=== PATIENT | female | born 1960 | race Caucasian/White ===

== ENCOUNTER → 2017-03-11 | Outpatient (CLI) | payer MEDICARE, MEDICAID ==
[~2017-03-11] MED LIST: /AUGM25TA; ACET65TA OR; AMLO10TA; CATA0.2D; CATA0.3D; CLON0.1D3; COLA100C2 OR; FERR325T OR; FLAG500T; LOPR50TA; LOPR50TA OR; METO10TA2; METO25TA2; MINOXIDIL; MINOXIDIL PO; MULTIVIT PO; PERC5TAB8; PERC5TAB8 OR; PERC7.5T8 OR; SODIUM BICARB PO
== END ==
LOC: M LAB 08:14
PROVIDERS: ATTEND Internal Medicine Nephrology
DX: Z94.0 Kidney transplant status (principal)

== ENCOUNTER → 2017-03-18 | Outpatient (CLI) | payer MEDICARE, MEDICAID | LOC: M LAB 08:37 | PROVIDERS: ATTEND Internal Medicine Nephrology | DX: Z94.0 Kidney transplant status (principal) ==

== ENCOUNTER → 2017-03-22 | Outpatient (CLI) | payer MEDICARE, MEDICAID | LOC: M LAB 08:46 | PROVIDERS: ATTEND Internal Medicine Nephrology | DX: Z94.0 Kidney transplant status (principal) ==

== ENCOUNTER → 2017-04-05 | Outpatient (CLI) | payer MEDICARE, MEDICAID | LOC: M LAB 08:18 | PROVIDERS: ATTEND Internal Medicine Nephrology | DX: D84.9 Immunodeficiency, unspecified (principal); N18.5 Chronic kidney disease, stage 5; Z94.0 Kidney transplant status; Z79.899 Other long term (current) drug therapy ==

== ENCOUNTER → 2017-04-16 | Outpatient (CLI) | payer MEDICARE, MEDICAID | LOC: M LAB 08:31 | PROVIDERS: ATTEND Internal Medicine Nephrology | DX: Z94.0 Kidney transplant status (principal); N18.5 Chronic kidney disease, stage 5; D84.9 Immunodeficiency, unspecified; Z79.899 Other long term (current) drug therapy ==

== ENCOUNTER → 2017-04-22 | Outpatient (CLI) | payer MEDICARE, MEDICAID | LOC: M LAB 08:44 | PROVIDERS: ATTEND Internal Medicine Nephrology | DX: Z51.81 Encounter for therapeutic drug level monitoring (principal); Z79.899 Other long term (current) drug therapy ==

== ENCOUNTER → 2017-04-29 | Outpatient (CLI) | payer MEDICARE, MEDICAID | LOC: M LAB 08:39 | DX: D84.9 Immunodeficiency, unspecified (principal); N18.5 Chronic kidney disease, stage 5; Z94.0 Kidney transplant status; Z79.899 Other long term (current) drug therapy | CPT/HCPCS: 36415 ==

== ENCOUNTER → 2017-05-20 | Outpatient (CLI) | payer MEDICARE, MEDICAID | LOC: M LAB 08:38 | DX: N18.5 Chronic kidney disease, stage 5 (principal); Z94.0 Kidney transplant status; D84.9 Immunodeficiency, unspecified; Z79.899 Other long term (current) drug therapy | CPT/HCPCS: 36415 ==

== ENCOUNTER → 2017-06-10 | Outpatient (CLI) | payer MEDICARE, MEDICAID | LOC: M LAB 09:05 | DX: N18.5 Chronic kidney disease, stage 5 (principal); Z94.0 Kidney transplant status; D84.9 Immunodeficiency, unspecified; Z79.899 Other long term (current) drug therapy | CPT/HCPCS: 36415 ==

== ENCOUNTER → 2017-06-24 | Outpatient (CLI) | payer MEDICARE, MEDICAID | LOC: M LAB 08:46 | DX: Z94.0 Kidney transplant status (principal); D84.9 Immunodeficiency, unspecified; N18.5 Chronic kidney disease, stage 5; Z79.899 Other long term (current) drug therapy | CPT/HCPCS: 36415 ==

== ENCOUNTER → 2017-09-03 | Outpatient (CLI) | payer MEDICARE, MEDICAID | LOC: M LAB 08:39 | DX: Z94.0 Kidney transplant status (principal); N18.5 Chronic kidney disease, stage 5; D84.9 Immunodeficiency, unspecified | CPT/HCPCS: 36415 ==

== ENCOUNTER → 2017-10-21 | Outpatient (CLI) | payer MEDICARE, MEDICAID ==
[2017-10-21 09:03] LABS: ALBUMIN 3.7 GM/DL (3.2-5.2); ANION GAP 5 MEQ/L (8-16); BLOOD UREA NITROGEN 14 MG/DL (7-18); CALCIUM LEVEL 9.7 MG/DL (8.5-10.1); CARBON DIOXIDE LEVEL 31 MEQ/L (21-32); CHLORIDE LEVEL 106 MEQ/L (98-107); CREATININE FOR GFR 0.75 MG/DL (0.55-1.30); GLOMERULAR FILTRATION RATE > 60.0 (>51); GLUCOSE, FASTING 102 MG/DL (70-100); PHOSPHORUS LEVEL 3.1 MG/DL (2.5-4.9); SODIUM LEVEL 142 MEQ/L (136-145)
[2017-10-21 09:08] LABS: POTASSIUM SERUM 5.6 MEQ/L (3.5-5.1)
== END ==
LOC: M LAB 08:16
DX: Z94.0 Kidney transplant status (principal)
CPT/HCPCS: 80069

== ENCOUNTER → 2017-11-18 | Outpatient (CLI) | payer MEDICARE, MEDICAID ==
[2017-11-18 09:58] LABS: BASO % 0.4 % (0.0-1.0); EOS # 0.1 10^3/uL (0.0-0.50); EOS % 1.5 % (0.0-3.0); HEMATOCRIT 43.7 % (36.0-47.0); HEMOGLOBIN 13.5 g/dl (12.0-15.5); IMMATURE GRANULOCYTE % 0.9 % (0-3.0); LYMPH % 14.2 % (24.0-44.0); MEAN CORPUSCULAR HEMOGLOBIN 28.8 pg (27.0-33.0); MEAN CORPUSCULAR HGB CONC 30.9 g/dl (32.0-36.5); MEAN CORPUSCULAR VOLUME 93.2 fl (80.0-96.0); MONO # 0.7 10^3/uL (0.0-0.8); MONO % 9.8 % (0.0-5.0); NEUTROPHILS % 73.2 % (36.0-66.0); PLATELET COUNT, AUTOMATED 242 10^3/uL (150-450); RED BLOOD COUNT 4.69 10^6/uL (4.00-5.40); RED CELL DISTRIBUTION WIDTH 14.2 % (11.5-14.5); WHITE BLOOD COUNT 6.8 10^3/uL (4.0-10.0)
[2017-11-18 10:03] LABS: APPEARANCE, URINE CLEAR (CLEAR); BACTERIA, URINE AUTO 1+ (NEGATIVE); BILIRUBIN, URINE AUTO NEGATIVE (NEGATIVE); BLOOD, URINE BLOOD NEGATIVE (NEGATIVE); COLOR, URINE STRAW (YELLOW); GLUCOSE, URINE (UA) AUTO NEGATIVE (NEGATIVE); KETONE, URINE AUTO NEGATIVE (NEGATIVE); LEUKOCYTE ESTERASE, URINE AUTO NEGATIVE (NEGATIVE); NITRITE, URINE AUTO NEGATIVE (NEGATIVE); PROTEIN, URINE AUTO NEGATIVE (NEGATIVE); RBC, URINE AUTO 0 /HPF (0-3); SPECIFIC GRAVITY URINE AUTO 1.002 (1.002-1.035); SQUAMOUS EPITHELIAL CELL UR AU 0 /HPF (0-6); UROBILINOGEN, URINE AUTO 0.2 mg/dL (0.0-2.0); WBC, URINE AUTO 2 /HPF (0-3)
[2017-11-18 10:15] LABS: ALBUMIN 3.9 GM/DL (3.2-5.2); ANION GAP 7 MEQ/L (8-16); BLOOD UREA NITROGEN 9 MG/DL (7-18); CARBON DIOXIDE LEVEL 30 MEQ/L (21-32); CHLORIDE LEVEL 106 MEQ/L (98-107); CREATININE FOR GFR 0.63 MG/DL (0.55-1.30); GLOMERULAR FILTRATION RATE > 60.0 (>51); GLUCOSE, FASTING 97 MG/DL (70-100); MAGNESIUM LEVEL 1.5 MG/DL (1.8-2.4); POTASSIUM SERUM 4.6 MEQ/L (3.5-5.1); SODIUM LEVEL 143 MEQ/L (136-145)
== END ==
LOC: M LAB 09:07
DX: Z94.0 Kidney transplant status (principal); N18.5 Chronic kidney disease, stage 5; D84.9 Immunodeficiency, unspecified; Z79.899 Other long term (current) drug therapy
CPT/HCPCS: 83735

== ENCOUNTER → 2017-12-17 | Outpatient (CLI) | payer MEDICARE, MEDICAID ==
[2017-12-17 09:31] LABS: BASO % 0.7 % (0.0-1.0); EOS # 0.1 10^3/uL (0.0-0.50); EOS % 1.8 % (0.0-3.0); HEMATOCRIT 43.4 % (36.0-47.0); HEMOGLOBIN 13.6 g/dl (12.0-15.5); IMMATURE GRANULOCYTE % 0.5 % (0-3.0); LYMPH # 1.2 10^3/uL (1.5-4.5); LYMPH % 19.2 % (24.0-44.0); MEAN CORPUSCULAR HEMOGLOBIN 29.4 pg (27.0-33.0); MEAN CORPUSCULAR HGB CONC 31.3 g/dl (32.0-36.5); MEAN CORPUSCULAR VOLUME 93.9 fl (80.0-96.0); MONO # 0.6 10^3/uL (0.0-0.8); MONO % 10.5 % (0.0-5.0); NEUTROPHILS % 67.3 % (36.0-66.0); PLATELET COUNT, AUTOMATED 244 10^3/uL (150-450); RED BLOOD COUNT 4.62 10^6/uL (4.00-5.40); RED CELL DISTRIBUTION WIDTH 13.1 % (11.5-14.5)
[2017-12-17 09:34] LABS: APPEARANCE, URINE CLEAR (CLEAR); BACTERIA, URINE AUTO NEGATIVE (NEGATIVE); BILIRUBIN, URINE AUTO NEGATIVE (NEGATIVE); BLOOD, URINE BLOOD NEGATIVE (NEGATIVE); COLOR, URINE YELLOW (YELLOW); GLUCOSE, URINE (UA) AUTO NEGATIVE (NEGATIVE); KETONE, URINE AUTO NEGATIVE (NEGATIVE); LEUKOCYTE ESTERASE, URINE AUTO NEGATIVE (NEGATIVE); NITRITE, URINE AUTO NEGATIVE (NEGATIVE); PROTEIN, URINE AUTO NEGATIVE (NEGATIVE); RBC, URINE AUTO 1 /HPF (0-3); SPECIFIC GRAVITY URINE AUTO 1.014 (1.002-1.035); SQUAMOUS EPITHELIAL CELL UR AU 1 /HPF (0-6); UROBILINOGEN, URINE AUTO 0.2 mg/dL (0.0-2.0); WBC, URINE AUTO 0 /HPF (0-3)
[2017-12-17 10:11] LABS: ALBUMIN 3.6 GM/DL (3.2-5.2); ANION GAP 6 MEQ/L (8-16); BLOOD UREA NITROGEN 13 MG/DL (7-18); CARBON DIOXIDE LEVEL 31 MEQ/L (21-32); CHLORIDE LEVEL 106 MEQ/L (98-107); CREATININE FOR GFR 0.68 MG/DL (0.55-1.30); GLOMERULAR FILTRATION RATE > 60.0 (>51); GLUCOSE, FASTING 88 MG/DL (70-100); MAGNESIUM LEVEL 1.5 MG/DL (1.8-2.4); POTASSIUM SERUM 4.4 MEQ/L (3.5-5.1); SODIUM LEVEL 143 MEQ/L (136-145)
== END ==
LOC: M LAB 08:13
DX: Z94.0 Kidney transplant status (principal); N18.5 Chronic kidney disease, stage 5; D84.9 Immunodeficiency, unspecified; Z79.899 Other long term (current) drug therapy
CPT/HCPCS: 83735

== ENCOUNTER → 2018-06-13 | Outpatient (CLI) | payer MEDICARE, MEDICAID ==
--- NOTE | 2018-06-13 17:08 | REP ---
NUCLEAR PARATHYROID SESTAMIBI SCAN WITH SPECT IMAGING: Following the intravenous administration of 27.5 millicuries of Technetium 99M Sestamibi, multiple images of the neck are performed at 15 minutes and 3.25 hours after injection. SPECT imaging is also performed in the delayed phase in the axial, sagittal and coronal planes. Initial images show symmetric uptake in the salivary glands and thyroid. On the more delayed images there is persistent activity in the salivary glands, symmetrically there is bilateral washout from the thyroid bed. There is no persistent focus of increased uptake in this region. IMPRESSION :No compelling scintigraphic evidence of parathyroid adenoma. Electronically Signed by Jordan Morse MD 06/13/2018 11:56 P
== END ==
LOC: M RAD 09:27
PROVIDERS: ATTEND Internal Medicine Nephrology
DX: E21.0 Primary hyperparathyroidism (principal)
CPT/HCPCS: 78070; 78803; A9500

== ENCOUNTER → 2018-08-11 | Outpatient (REF) | payer MEDICARE, MEDICAID | LOC: M LAB REF 13:07 | PROVIDERS: ATTEND Internal Medicine Nephrology | DX: Z94.0 Kidney transplant status (principal) ==

== ENCOUNTER → 2018-09-23 | Outpatient (CLI) | payer MEDICARE, MEDICAID ==
[2018-09-23 09:05] LABS: APPEARANCE, URINE HAZY (CLEAR); BACTERIA, URINE AUTO NEGATIVE (NEGATIVE); BILIRUBIN, URINE AUTO NEGATIVE (NEGATIVE); BLOOD, URINE BLOOD NEGATIVE (NEGATIVE); COLOR, URINE YELLOW (YELLOW); GLUCOSE, URINE (UA) AUTO NEGATIVE (NEGATIVE); KETONE, URINE AUTO NEGATIVE (NEGATIVE); LEUKOCYTE ESTERASE, URINE AUTO NEGATIVE (NEGATIVE); NITRITE, URINE AUTO NEGATIVE (NEGATIVE); PROTEIN, URINE AUTO NEGATIVE (NEGATIVE); RBC, URINE AUTO 0 /HPF (0-3); SPECIFIC GRAVITY URINE AUTO 1.013 (1.002-1.035); SQUAMOUS EPITHELIAL CELL UR AU 1 /HPF (0-6); UROBILINOGEN, URINE AUTO 0.2 mg/dL (0.0-2.0); WBC, URINE AUTO 2 /HPF (0-3)
[2018-09-23 09:07] LABS: BASO % 0.3 % (0.0-1.0); EOS % 0.7 % (0.0-3.0); HEMATOCRIT 46.2 % (36.0-47.0); HEMOGLOBIN 14.6 g/dl (12.0-15.5); LYMPH # 1.1 10^3/uL (1.5-4.5); LYMPH % 17.5 % (24.0-44.0); MEAN CORPUSCULAR HEMOGLOBIN 29.1 pg (27.0-33.0); MEAN CORPUSCULAR HGB CONC 31.6 g/dl (32.0-36.5); MONO # 0.7 10^3/uL (0.0-0.8); MONO % 11.1 % (0.0-5.0); NEUTROPHILS # 4.3 10^3/uL (1.8-7.7); NEUTROPHILS % 69.9 % (36.0-66.0); PLATELET COUNT, AUTOMATED 215 10^3/uL (150-450); RED BLOOD COUNT 5.02 10^6/uL (4.00-5.40); WHITE BLOOD COUNT 6.1 10^3/uL (4.0-10.0)
[2018-09-23 09:20] LABS: BLOOD UREA NITROGEN 9 MG/DL (7-18); CARBON DIOXIDE LEVEL 27 MEQ/L (21-32); CHLORIDE LEVEL 104 MEQ/L (98-107); CREATININE FOR GFR 0.76 MG/DL (0.55-1.30); GLOMERULAR FILTRATION RATE > 60.0 (>45); GLUCOSE, FASTING 120 MG/DL (70-100); MAGNESIUM LEVEL 1.3 MG/DL (1.8-2.4); PHOSPHORUS LEVEL 3.2 MG/DL (2.5-4.9); POTASSIUM SERUM 4.4 MEQ/L (3.5-5.1); SODIUM LEVEL 138 MEQ/L (136-145)
[2018-09-23 09:21] LABS: TOTAL PROTEIN,RANDOM URINE 17.1 MG/DL (0.0-12.0)
== END ==
LOC: M LAB 08:14
PROVIDERS: ATTEND Nurse Practitioner Family
DX: Z51.81 Encounter for therapeutic drug level monitoring (principal); Z79.899 Other long term (current) drug therapy; N18.5 Chronic kidney disease, stage 5; Z94.0 Kidney transplant status; D84.9 Immunodeficiency, unspecified

== ENCOUNTER → 2018-11-15 | Outpatient (REF) | payer MEDICARE, MEDICAID | LOC: M LAB REF 12:47 | PROVIDERS: ATTEND Internal Medicine Nephrology | DX: Z94.0 Kidney transplant status (principal) ==

== ENCOUNTER → 2019-03-01 | Outpatient (REF) | payer MEDICARE, MEDICAID | LOC: M LAB REF 13:08 | PROVIDERS: ATTEND Internal Medicine Nephrology | DX: Z94.0 Kidney transplant status (principal) ==

== ENCOUNTER → 2019-09-06 | Outpatient (REF) | payer MEDICARE, MEDICAID | LOC: M LAB REF 16:37 | PROVIDERS: ATTEND Nurse Practitioner Family | DX: Z94.0 Kidney transplant status (principal) ==

== ENCOUNTER → 2019-12-20 | Outpatient (REF) | payer MEDICARE, MEDICAID ==
[2019-12-20 19:21] LABS: ALT/SGPT 14 U/L (12-78); BILIRUBIN,DIRECT < 0.1 MG/DL (0.0-0.2); BILIRUBIN,TOTAL 0.3 MG/DL (0.2-1.0); CHOLESTEROL LEVEL 229 MG/DL (<200); HDL CHOLESTEROL 51 MG/DL (>40); LDL CHOLESTEROL 133 MG/DL (<100); NON-HDL-C 178 MG/DL; TOTAL PROTEIN 7.1 GM/DL (6.4-8.2); TRIGLYCERIDES LEVEL 227 MG/DL (<150)
[2019-12-20 19:56] LABS: TOTAL T3 98.1 NG/DL (60.0-181.0)
== END ==
LOC: M LAB REF 16:44
PROVIDERS: ATTEND Nurse Practitioner Family
DX: N18.2 Chronic kidney disease, stage 2 (mild) (principal); E78.49 Other hyperlipidemia; R53.83 Other fatigue; Z94.0 Kidney transplant status

== ENCOUNTER → 2020-01-16 | Outpatient (CLI) | payer MEDICARE, MEDICAID ==
--- NOTE | 2020-01-16 17:15 | REPMRS ---
Patient History The patient states she has not had a clinical breast exam in over a year. No known family history of cancer. Digital Woman Screen Mammo: January 16, 2020 - Exam #: [id number] Bilateral CC and MLO view(s) were taken. Technologist: Rafaela Valderrama, Technologist Prior study comparison: March 02, 2016, digital woman screen mammo performed at [facility]. February 08, 2014, digital woman screen mammo performed at [facility]. February 08, 2012, digital woman screen mammo performed at [facility]. FINDINGS: There are scattered fibroglandular densities. The Volpara volumetric breast density category is:B. There has been no change in the appearance of the mammogram from the prior studies. There is a mild amount of scattered fibroglandular density which is fairly symmetric. There is no interval development of dominant mass, architectural distortion, or grouped microcalcification suggestive of malignancy. 3-D tomosynthesis shows no additional findings. Assessment: BI-RADS/ACR category 1 mammogram. Negative Mammogram. Recommendation Routine screening mammogram of both breasts in 1 year (for women over age 40). This patient's Lifetime Breast Cancer Risk is estimated at 5.5 %. This mammogram was interpreted with the aid of an FDA-approved computer-aided dectection system. Electronically Signed By: Flaco Sandoval MD 01/16/20 [id number]
--- NOTE | 2020-01-26 15:15 | DEXA ---
AP SPINE L1 - L4 0.974 -1.8 -0.5 LT FEMUR TOTAL 0.780 -1.8 -0.8 LT NECK 0.712 -2.3 -1.0 RT FEMUR TOTAL 0.788 -1.7 -0.8 RT NECK 0.719 -2.3 -1.0 TOTAL BODY TOTAL OTHER COMMENTS: Normal bone densitometry of the spine. There is open density of the hips. FOLLOW-UP: Recommendation for the next bone density exam: 2 years. KULWINDER
== END ==
LOC: M WHC 12:46
PROVIDERS: ATTEND Nurse Practitioner Family
DX: Z12.31 Encounter for screening mammogram for malignant neoplasm of breast (principal); Z13.820 Encounter for screening for osteoporosis; Z79.52 Long term (current) use of systemic steroids

== ENCOUNTER → 2020-05-08 | Outpatient (REF) | payer MEDICAID | LOC: M LAB REF 17:12 | PROVIDERS: ATTEND Nurse Practitioner Family | DX: N18.2 Chronic kidney disease, stage 2 (mild) (principal) ==

== ENCOUNTER → 2020-06-10 | Outpatient (REF) | payer OTHER, MEDICAID | LOC: M LAB REF 16:56 | PROVIDERS: ATTEND Nurse Practitioner Family | DX: Z94.0 Kidney transplant status (principal) ==

== ENCOUNTER 2020-07-09 10:05 | Inpatient (IN) | payer MEDICAID, OTHER ==
[~2020-07-09] VITALS: Ht 162.6 cm; Wt 56.7 kg
[2020-07-09] VITALS (8 sets, daily range): BP systolic 96–145; BP diastolic 49–75
[~2020-07-09 10:05] MED LIST changes: -ACET-840 PO; -CALC-356 PO; -CALC1CAP31 PO; -HYDR10TAB PO; -METO1TAB33 PO; -MYCO1TAB PO; -PRED5TA PO; -TACR1CAP3 PO
[2020-07-09] MEDS ORDERED: dexameTHASONE 20MG/5ML VIAL (J1100 PER 1MG) IV ONE (10:15)
[2020-07-09] MEDS ORDERED: NS 500 ML IV ONE (10:20)
[2020-07-09] MEDS: COMBIVENT RESPIMAT 100-20MCG INHALER 4GM INH SCH ×3 (10:25→11:59)
--- NOTE | 2020-07-09 10:53 | REP ---
INDICATION: DYSPNEA/COUGH COMPARISON: 12/11/2008 TECHNIQUE: Portable AP view of the chest FINDINGS: Diffuse vague increased interstitial markings suggest underlying viral pneumonia/pneumonitis. No discrete focal consolidation. No effusion. No pneumothorax. Cardiac silhouette is upper limits of normal. Skeletal structures intact. IMPRESSION: Findings raise the possibility of diffuse viral pneumonia/pneumonitis. Less likely differential diagnosis includes early interstitial edema. <Electronically signed by Ke Castro > 07/09/20 [id number]
[2020-07-09 11:11] LABS: BASO % 0.4 % (0.0-1.0); EOS % 0.1 % (0.0-3.0); HEMATOCRIT 50.8 % (36.0-47.0); HEMOGLOBIN 13.9 g/dl (12.0-15.5); LYMPH # 0.6 10^3/uL (1.5-5.0); LYMPH % 8.2 % (24.0-44.0); MEAN CORPUSCULAR HEMOGLOBIN 27.9 pg (27.0-33.0); MEAN CORPUSCULAR HGB CONC 27.4 g/dl (32.0-36.5); MONO # 0.8 10^3/uL (0.0-0.8); MONO % 11.2 % (2.0-8.0); NEUTROPHILS # 5.5 10^3/uL (1.5-8.5); NEUTROPHILS % 79.5 % (36.0-66.0); PLATELET COUNT, AUTOMATED 211 10^3/uL (150-450); RED BLOOD COUNT 4.98 10^6/uL (4.00-5.40)
[2020-07-09 11:21] LABS: INR 0.94; PROTHROMBIN TIME 12.8 SECONDS (12.5-14.3)
[2020-07-09 11:23] LABS: D-DIMER QUANT 1155.33 ng/ml (<500)
[2020-07-09 11:35] LABS: ALBUMIN 3.6 GM/DL (3.2-5.2); ALT/SGPT 15 U/L (12-78); BILIRUBIN,DIRECT 0.2 MG/DL (0.0-0.2); BILIRUBIN,TOTAL 0.5 MG/DL (0.2-1.0); BLOOD UREA NITROGEN 12 MG/DL (7-18); C REACTIVE PROTEIN QUANTITATIV 1.87 MG/DL (0.00-0.30); CALCIUM LEVEL 9.9 MG/DL (8.8-10.2); CARBON DIOXIDE LEVEL 41 MEQ/L (21-32); CHLORIDE LEVEL 99 MEQ/L (98-107); CK-MB VALUE MASS 1.6 NG/ML (<3.6); CPK CREATINE PHOSPHOKINASE 38 U/L (26-192); CREATININE FOR GFR 0.66 MG/DL (0.55-1.30); FERRITIN 71 NG/ML (8-252); GLOMERULAR FILTRATION RATE > 60.0 (>45); GLUCOSE, FASTING 107 MG/DL (70-100); LDH LACTATE DEHYDROGENASE 176 U/L (84-246); MB/CK RELATIVE INDEX 4.21 (< OR =4); NT-PRO BNP 2625 PG/ML (<125); POTASSIUM SERUM 4.5 MEQ/L (3.5-5.1); SODIUM LEVEL 140 MEQ/L (136-145); THYROXINE (T4) 10.6 UG/DL (4.5-12.0); TOTAL PROTEIN 6.8 GM/DL (6.4-8.2); TROPONIN I 0.03 NG/ML (< 0.10)
[2020-07-09 11:49] LABS: ERYTHROCYTE SEDIMENTATION RATE 2 mm/hr (0-30)
[2020-07-09] MEDS ORDERED: ISOVUE-370 76% 100ML VIAL As Ordered ONE (11:53)
--- NOTE | 2020-07-09 12:07 | ECGEPIP ---
[facility] - ED Test Date: 2020-07-09 Pat Name: TIERA NAVARRO Department: Room: - Gender: Female Food Counter Attendant: ALEXSANDRA : 1960 Requested By: ROSE Ogden Order Number: [id number] Reading MD: Lars Muir Measurements Intervals [place] Rate: 88 P: 65 NC: 134 QRS: 44 QRSD: 80 T: 70 QT: 340 QTc: 411 Interpretive Statements Sinus rhythm with occasional premature ventricular complexes POOR R WAVE PROGRESSION Minimal voltage criteria for LVH, may be normal variant Nonspecific ST abnormality NO PRIORS FOR COMPARISON Electronically Signed on 07-09-2020 12:06:57 EST by Lars Muir
--- NOTE | 2020-07-09 12:24 | REP ---
INDICATION: hypoxia/shortness of breath COMPARISON: None. TECHNIQUE: Axial contrast enhanced images from the thoracic inlet to the upper abdomen using pulmonary embolus technique with multiplanar re-formations. 75 ml Isovue 370 intravenous contrast material administered without complication. This CT examination was performed using the following dose reduction techniques: Automated exposure control, adjustment of mA and/or kv according to the patient's size, and use of iterative reconstruction technique. FINDINGS: Satisfactory enhancement of the pulmonary vasculature is achieved and no filling defects are identified to suggest pulmonary embolus. Thoracic aorta demonstrates atherosclerotic changes without aneurysm or dissection. The heart is upper limits of normal in size with small amount of pericardial fluid as a nonspecific finding. The lung cuello demonstrate mild reticulonodular prominence which may reflect a mild viral pneumonia with associated minimal bibasilar atelectasis and small pleural effusions. No significant adenopathy. No pneumothorax. Limited upper abdomen demonstrates normal bilateral adrenal glands and atrophic appearance to the bilateral kidneys. Surrounding musculoskeletal structures are intact. IMPRESSION: No evidence for pulmonary embolus. Mild bibasilar atelectasis and small pleural effusions are otherwise nonspecific. <Electronically signed by Ke Castro > 07/09/20 [id number]
[2020-07-09] MEDS ORDERED: HYDR10TAB PO (14:17)
[2020-07-09] MEDS ORDERED: CALC-356 PO (14:17)
[2020-07-09] MEDS ORDERED: MYCO1TAB PO (14:17)
[2020-07-09] MEDS ORDERED: PRED5TA PO (14:17)
[2020-07-09] MEDS ORDERED: ACET-840 PO (14:17)
[2020-07-09] MEDS ORDERED: METO1TAB33 PO (14:17)
[2020-07-09] MEDS ORDERED: TACR1CAP3 PO (14:17)
[2020-07-09] MEDS ORDERED: CALC1CAP31 PO (14:17)
[2020-07-09] MEDS ORDERED: ALBUTEROL SULFATE 2.5 MG/0.5 ML INH NEB SOLN NEB PRN (14:40)
--- NOTE | 2020-07-09 16:25 | HPEPDOC ---
[facility] Medical History & Physical Date of Admission Jul 09, 2020 Date of Service: Jul 09, 2020 Attending Physician: Altagracia Rice MD History and Physical CHIEF COMPLAINT: Increased SOB, altered mental status HISTORY OF PRESENT ILLNESS: Patient is a 59 y/o F with PMH of CKD s/p renal transplant, HTN, tobacco use, HTN, ? COPD, hyperparathyroidism who presented to [facility] with increased SOB. Patient was a poor historian due to forgetfulness so her daughter and HCP Devorah gave us more information about history. Per her daughter, she has been having increased SOB over the past several weeks. Other associated symptoms include dizziness, falls at home, lightheadedness, increased SOB, increased lethargy, poor sleep, unsteadiness. Today when the patient's daughter came to take her to her nephrology appointment, she was very forgetful, unsteady on her feet, confused and disoriented. They then proceeded to go to the nephrology office. Once they were there, they were sent to the ER via ambulance by the provider who had seen her. In the ER, RR 32-40, O2 sat 100% on 4 L NC. ABG showed pH 7.3 / pCO2 88 / pHCO3 43.5. She had decreased breath sounds bilaterally, was in respiratory distress and confused. Her repeat ABG showed to be worse with pH 7.23 / pCO2 97 / pHCO3 41. ER was advised to use bipap, steroids, nebulizers which helped immensely. D dimer was elevated, CTA chest showed small bilateral pleural effusions but no s/s of PNA, COVID and resp panel neg. BNP elevated at 2625, no hx of CHF, no prior echo on file. No s/s of fluid overload on exam. Patient was confused on exam but had much improved according to staff from when she first presented to the hospital. She denied chest pain, coughing, fevers, chills, n/v/d. Her daughter was contacted by myself to get additional information. She was later admitted to the ICU on bipap for acute hypercapnic respiratory failure 2/ to possible COPD exacerbation. REVIEW OF SYSTEMS: Neg except mentioned above PAST MEDICAL HISTORY: Tobacco use ? COPD CKD s/p renal transplant Hyperparathyroidism PAST SURGICAL HISTORY: Renal transplant 01/2017 Exploratory laparotomy 06/04 to bowel perforation from diverticulitis S/p sigmoid colectomy with colostomy with reversal colostomy Diverting colostomy placed and later reversed 01/11/2009 FAMILY HISTORY: Father: CKD. early 30's. Mother: lung cancer. at 76 y/o SOCIAL HISTORY: Smoker 3 cigarettes per day, used to smoke up to 1 PPD, smoking 48 years. Social alcohol use, denies illicit drug use. Specialists she follows with include: Dr. Alatorre (transplant team in [facility] ), Nephrology Dr. Anders, Metrology Technician- [place]. No PCP. Full Code. HCP daughter Devorah. ALLERGIES: Please see below. HOME MEDICATIONS: Please see below. PHYSICAL EXAMINATION: VS: Please see CONSTITUTIONAL:sitting up in bed, mild respiratory distress, AAO x 3 EYES: PERRLA, EOM intact HENT, MOUTH: Normocephalic, atraumatic, moist mucous membranes NECK: SUPPLE, no JVD, no lymphadenopathy, no carotid bruit CV: Regular rate and rhythm, S1S2 normal, no murmurs/rubs/gallops RESPIRATORY: Decreased breath sounds bilaterally, no rales/rhonchi/wheezes GI: Multiple well-healed scars on abd, BS positive in 4 quadrants, soft, nontender, nondistended, no rebound or guarding, no organomegaly : Deferred MUSCULOSKELETAL: Normal ROM. No cyanosis, clubbing, swelling, joint deformity, extremity edema INTEGUMENTARY: Intact, no rashes, no lesions, no erythema NEUROLOGIC: Cranial Nerves II-XII are intact, no focal deficits PSYCHIATRIC: Slightly confused but cooperative LABORATORY DATA: Please see below IMAGING: CTA chest: No evidence for pulmonary embolus. Mild bibasilar atelectasis and small pleural effusions are otherwise nonspecific. ASSESSMENT: 59 y/o F with PMH of CKD s/p renal transplant, HTN, tobacco use, HTN, ? COPD, hyperparathyroidism admitted to the ICU on bipap for acute hypercapnic respiratory failure 2/2 to possible COPD exacerbation. PLAN: Acute hypercapnic respiratory failure 2/2 to possible COPD exacerbation -Long time smoker, no prior official diagnosis but was suspected according to daughter -Improving ABG's, currently on bipap: 04/07, FiO2 30%- improving -COVID neg, resp panel neg -C/w methylprenisolone IV Q8H, duoneb ATC, albuterol PRN -Bipap PRN -Dr. Anderson (pulmonary) consulted Elevated BNP, r/o CHF -No s/s of fluid overload on exam, small effusions on CT -No cardiac hx -BNP 2625 -Giving lasix 20 mg x 1 today, watch Cr was is renal transplant pt -C/w BB -F/u echocardiogram CKD Stage 4 s/p renal transplant -Cr 0.66 -C/w home medications, holding PO prednisone while on high methylprednisolone. f/u mycophenolate and tacrolimus levels -Dr. Anders valve setter locally Hyperparathyroidism -F/u PTH level -To f/u as o/p with specialist to have parathyroid removed HTN -Stable -C/w home medications DVT px -Heparin SC DISPOSITION: Updated DELGADO Fairchild and daughter [phone]. Admitted to ICU for further care. ICU TIME SPENT CARING FOR PATIENT (nonprocedural): 50 MINS Vital Signs Vital Signs Date Time Temp Pulse Resp B/P (MAP) Pulse Ox O2 Delivery O2 Flow Rate FiO2 07/09/20 13:43 80 32 93 07/09/20 13:30 115/73 (87) 07/09/20 12:30 35 07/09/20 10:39 99.1 Nasal Cannula 4.0 Laboratory Data Labs 24H Laboratory Tests 2 07/09/20 10:38: Immature Granulocyte % (Auto) 0.6, Neutrophils (%) (Auto) 79.5H, Lymphocytes (%) (Auto) 8.2L, Monocytes (%) (Auto) 11.2H, Eosinophils (%) (Auto) 0.1, Basophils (%) (Auto) 0.4, Neutrophils # (Auto) 5.5, Lymphocytes # (Auto) 0.6L, Monocytes # (Auto) 0.8, Eosinophils # (Auto) 0.0, Basophils # (Auto) 0.0, Nucleated Red Blood Cells % (auto) 0.0, Erythrocyte Sedimentation Rate 2, Prothrombin Time 12.8, Prothromb Time International Ratio 0.94, D-Dimer, Quantitative 1155.33H, Anion Gap 0L, Glomerular Filtration Rate > 60.0, Calcium Level 9.9, Ferritin 71, Total Bilirubin 0.5, Direct Bilirubin 0.2, Aspartate Amino Transf (AST/SGOT) 10, Alanine Aminotransferase (ALT/SGPT) 15, Alkaline Phosphatase 90, Lactate Dehyd rogenase 176, Total Creatine Kinase 38, Creatine Kinase MB 1.6, Creatine Kinase MB Relative Index 4.21H, Troponin I 0.03, C-Reactive Protein, Quantitative 1.87H, WU-Mep-J-Type Natriuretic Peptide 2625H, Total Protein 6.8, Albumin 3.6, Albumin/Globulin Ratio 1.1L, Thyroid Stimulating Hormone (TSH) 1.050, Thyroxine (T4) 10.6 07/09/20 10:39: Lactic Acid Level 1.5 07/09/20 10:44: POC pH (Misc Panel) 7.302L, POC Base Excess (Misc Panel) 17.0H, POC Saturated Percent O2 (Misc) 100H, POC pO2 (Misc Panel) 201.0H, POC pCO2 (Misc Panel) 88.0*H, POC HCO3 (Misc Panel) 43.5H, POC Total CO2 (Misc Panel) 46.0H 07/09/20 12:21: POC pH (Misc Panel) 7.236*L, POC Base Excess (Misc Panel) 14.0H, POC Saturated Percent O2 (Misc) 99H, POC pO2 (Misc Panel) 190.0H, POC pCO2 (Misc Panel) 97.7*H, POC HCO3 (Misc Panel) 41.5H, POC Total CO2 (Misc Panel) 44.0H 07/09/20 13:56: POC pH (Misc Panel) 7.352, POC Base Excess (Misc Panel) 11.0H, POC Saturated Percent O2 (Misc) 87L, POC pO2 (Misc Panel) 58.0L, POC pCO2 (Misc Panel) 66.7*H, POC HCO3 (Misc Panel) 37.0H, POC Total CO2 (Misc Panel) 39.0H CBC/BMP Laboratory Tests 07/09/20 10:38 Microbiology Microbiology 07/09/20 Respiratory Virus Panel (PCR) (SUDHIR) - Final, Complete 07/09/20 Blood Culture, Received Pending 07/09/20 Blood Culture, Received Pending Home Medications Scheduled Calcitriol (Calcitriol) 0.25 Mcg Capsule, 0.25 MCG PO 5XW TAKES MON-FRI AT BEDTIME Calcium Carbonate/Vitamin D3 (Calcium 600 mg-Vit D3 10Mcg Tb) 600 Mg-400 Tablet, 1 TAB PO BID Hydralazine HCl (Hydralazine HCl) 10 Mg Tablet, 10 MG PO BID Metoprolol Succinate (Metoprolol Succinate) 100 Mg Tab.er.24h, 100 MG PO DAILY Mycophenolate Sodium (Mycophenolic Acid) 180 Mg Tablet.dr, 360 MG PO QID Prednisone (Prednisone) 5 Mg Tablet, 5 MG PO DAILY Tacrolimus (Tacrolimus) 1 Mg Capsule, 2 MG PO BID Scheduled PRN Acetaminophen (Acetaminophen) 500 Mg Tablet, 1,000 MG PO Q6H PRN for PAIN Allergies Coded Allergies: latex (Verified Allergy, Mild, RISK, 07/09/20) No Known Drug Allergies (Verified Allergy, Unknown, 07/09/20) A-FIB/CHADSVASC A-FIB History Current/History of A-Fib/PAF?: No Current PO Anticoag Therapy: No Age/Risk Factor Scoring CHADSVASC: CHADSVASC Response (Comments) Value Age Risk Factor Age < 65 years old 0 Gender Risk Factor Female 1 Hx of CHF No 0 Hx of HTN Yes 1 Hx of Stroke/TIA/or VTE No 0 Hx of Diabetes No 0 Hx of Vascular Disease No 0 Total 2 Treatment Treatment ordered: Other Other anticoagulant ordered: heparin Altagracia Rice MD Jul 09, 2020 16:25
[2020-07-09] MEDS ORDERED: FUROSEMIDE 20 MG TAB PO ONE (16:30)
[2020-07-09] MEDS: METOPROLOL SUCC (TopROL XL) 100MG *XL* TAB PO SCH (16:34)
[2020-07-09] MEDS: IPRATROPIUM 0.02% SOLN 0.5MG 2.5ML NEB NEB SCH ×2 (16:45→20:38)
[2020-07-09 16:56] LABS: PTH INTACT 178.3 PG/ML (18.5-88.0)
[2020-07-09] MEDS ORDERED: NON-FORMULARY 1 EA EA PO SCH (17:00)
[2020-07-09] MEDS ORDERED: FLUBLOK(EGG FREE)(QUAD)INFLUENZA VACC 0.5ML SYRINGE 18YRS & OLDER IM SCH (17:05)
[2020-07-09 17:46] LABS: ABG BASE EXCESS 9.3 (-2.0-2.0); ABG HCO3 36.7 MEQ/L (22.0-26.0); ABG O2 SATURATION 88.8 % (95.0-99.0); ABG PARTIAL PRESSURE O2 51.8 mmHg (75.0-100.0); ABG STANDARD HCO3 32.9 MEQ/L (22.0-26.0); ABG TOTAL CO2 38.6 MEQ/L (23.0-31.0); ABG pH (ARTERIAL) 7.389 UNITS (7.350-7.450)
[2020-07-09 17:53] LABS: ABG PARTIAL PRESSURE CO2 62.2 mmHg (35.0-45.0)
[2020-07-09] MEDS: methylPREDNISolone 125MG 2ML VIAL IV SCH (18:31)
[2020-07-09] MEDS: MYCOPHENOLIC ACID 180 MG PO SCH ×2 (18:31→20:08)
[2020-07-09] MEDS: TACROLIMUS 1 MG CAP (J7507) PO SCH (20:08)
[2020-07-09] MEDS: CHLORHEXIDINE GLUCONATE 0.12 % 15ML UDC (PERIDEX ORAL RINSE) MT SCH (20:08)
[2020-07-09] MEDS: **hydrALAZINE** 10 MG TAB PO SCH (20:08)
[2020-07-09] MEDS: ACETAMINOPHEN 500 MG TAB PO PRN (20:08)
[2020-07-09] MEDS: HEPARIN SOD (PORCINE) 5000UNITS/ML 1ML VIAL/SYRINGE SC SCH (21:06)
[2020-07-10] VITALS (12 sets, daily range): BP systolic 101–135; BP diastolic 51–63
[2020-07-10] MEDS: methylPREDNISolone 125MG 2ML VIAL IV SCH ×3 (03:30→19:49)
[2020-07-10 05:05] LABS: HEMOGLOBIN 12.9 g/dl (12.0-15.5); MEAN CORPUSCULAR HEMOGLOBIN 28.7 pg (27.0-33.0); MEAN CORPUSCULAR HGB CONC 28.7 g/dl (32.0-36.5); PLATELET COUNT, AUTOMATED 195 10^3/uL (150-450); WHITE BLOOD COUNT 3.8 10^3/uL (4.0-10.0)
[2020-07-10 05:26] LABS: ALT/SGPT 12 U/L (12-78); BILIRUBIN,TOTAL 0.4 MG/DL (0.2-1.0); BLOOD UREA NITROGEN 13 MG/DL (7-18); CARBON DIOXIDE LEVEL 38 MEQ/L (21-32); CHLORIDE LEVEL 100 MEQ/L (98-107); CREATININE FOR GFR 0.63 MG/DL (0.55-1.30); GLOMERULAR FILTRATION RATE > 60.0 (>45); GLUCOSE, FASTING 138 MG/DL (70-100); POTASSIUM SERUM 4.6 MEQ/L (3.5-5.1); SODIUM LEVEL 141 MEQ/L (136-145); TOTAL PROTEIN 5.8 GM/DL (6.4-8.2)
[2020-07-10] MEDS: HEPARIN SOD (PORCINE) 5000UNITS/ML 1ML VIAL/SYRINGE SC SCH ×3 (06:15→21:01)
[2020-07-10] MEDS: IPRATROPIUM 0.02% SOLN 0.5MG 2.5ML NEB NEB SCH (07:58)
[2020-07-10] MEDS ORDERED: FUROSEMIDE 40 MG TAB PO ONE (08:00)
[2020-07-10 08:07] LABS: ABG BASE EXCESS 7.3 (-2.0-2.0); ABG HCO3 33.9 MEQ/L (22.0-26.0); ABG O2 SATURATION 88.1 % (95.0-99.0); ABG PARTIAL PRESSURE CO2 56.7 mmHg (35.0-45.0); ABG PARTIAL PRESSURE O2 50.2 mmHg (75.0-100.0); ABG STANDARD HCO3 30.9 MEQ/L (22.0-26.0); ABG TOTAL CO2 35.7 MEQ/L (23.0-31.0); ABG pH (ARTERIAL) 7.395 UNITS (7.350-7.450)
[2020-07-10] MEDS: **hydrALAZINE** 10 MG TAB PO SCH ×2 (08:19→20:16)
[2020-07-10] MEDS: CHLORHEXIDINE GLUCONATE 0.12 % 15ML UDC (PERIDEX ORAL RINSE) MT SCH ×2 (08:19→21:00)
[2020-07-10] MEDS: MYCOPHENOLIC ACID 180 MG PO SCH ×4 (08:20→20:16)
[2020-07-10] MEDS: NICOTINE 21MG/24HR 1 EA TRANSDERMAL TD SCH (08:21)
[2020-07-10] MEDS: METOPROLOL SUCC (TopROL XL) 100MG *XL* TAB PO SCH (08:21)
[2020-07-10] MEDS: TACROLIMUS 1 MG CAP (J7507) PO SCH ×2 (08:22→20:15)
--- NOTE | 2020-07-10 10:06 | CCN ---
PULMONARY CONSULTATION DATE: 07/09/2020 SUBJECTIVE: I attended Balbina Rader in the Intensive Care. Patient has been examined and chart reviewed. I spoke at length yesterday with Dr. Rice regarding her. In essence, this is a 59-year-old female who has smoked at least since age 10. She is known to have chronic kidney disease and is status post renal transplantation several years ago. She is suspected to have underlying obstructive lung disease but takes no medications for it at home and has never been admitted for such. She does have underlying hyperparathyroidism. She denies any acute issues. She was brought to the ER with increased shortness of breath and altered mental status and was found to have an underlying respiratory acidosis. She was treated for a COPD exacerbation, placed on noninvasive support. She improved rapidly improved with that and now currently feels better than her usual baseline she tells me. No fever, chills or sweats at home. No sick contacts. No significant sputum production. No chest pain. ALLERGIES: Listed as LATEX. HOME MEDICATIONS: 1. Cholecalciferol. 2. Calcium carbonate. 3. Vitamin D3. 4. Hydralazine. 5. Metoprolol. 6. Mycophenolate. 7. Prednisone. 8. Tacrolimus. PAST MEDICAL HISTORY: Significant for: 1. Renal transplantation. 2. Chronic immunosuppressive drugs. 3. History of diverticulitis. 4. Suspected underlying obstructive lung disease. SOCIAL HISTORY: Lives at home with a supportive family. Tobacco: A pack or more a day since age 10. FAMILY HISTORY: Noncontributory. REVIEW OF SYSTEMS: As per HPI, otherwise constitution negative, HEENT: Unremarkable for double vision. Pulmonary: See HPI. Cardiac: Unremarkable for any angina. GI: Unremarkable for nausea or vomiting. : Significant for a renal transplantation. Neurologic: Unremarkable for seizures or strokes. Endocrine: Significant for hyperparathyroidism. Skin: Unremarkable for rash or psoriasis. Musculoskeletal: Unremarkable for any new arthralgias or myalgias. Immunologic: Significant for chronic immunosuppression. Psychiatric is unremarkable. OBJECTIVE: GENERAL APPEARANCE: Physical examination currently reveals a pleasant female who appears at least her stated age. VITAL SIGNS: Blood pressure 130/70, heart rate generally around 68 to 72 with a sinus mechanism, respiratory rate 16 to 20 and unlabored without accessory muscle use. HEENT: Normocephalic, atraumatic. Pupils reactive. Trachea is in the midline. Membranes are moist. LUNGS: Diminished but symmetric expansion, mildly hyperresonant to percussion, tactile fremitus is palpable. No focal wheezes, rhonchi, crackles or rubs. CARDIAC: Distant but regular. Peripheral pulses are diminished but palpable. ABDOMEN: Soft with active bowel sounds. EXTREMITIES: Without cyanosis or clubbing. NEUROLOGIC: She is awake, alert and appropriate. PSYCH: Normal mood and affect. DIAGNOSTIC STUDIES: CT angiogram done yesterday shows no clot. There is some faint areas of ground-glass opacity. There is significant cardiomegaly. There is a small left pleural effusion with some dependent atelectasis. No significant focal infiltrates. White blood cell count 7.0, 3.8 today, hemoglobin 13.9, platelet count 211,000, 79.5% segs, no bands. Sodium 141, K 4.6, chloride 100, CO2 38, BUN 13, creatinine 0.63. Initial blood gas on arrival in the ER had a pH of 7.302, pCO2 of 88, pO2 of 201. She was placed on BiPAP after a repeat gas showed a pH of 7.236, pCO2 up to 97.7 and a pO2 of 190. First gas done on the bilevel showed a pH of 7.352, pCO2 66.7, pO2 of 58. On arrival to the ICU she had taken the BiPAP off, blood gas at that time showed a pH of 7.389, pCO2 of 62.2, pO2 of 51.8 on 2 liters nasal cannula. This morning on 3 liters nasal cannula she has as pH of 7.395, pCO2 of 56.7 pO2 of 50.2. IMPRESSION: 1. Acute on chronic respiratory failure, both hypoxemic and hypercapnic. 2. Suspect significant underlying obstructive lung disease. 3. Mildly abnormal x-ray, cannot rule out early infectious process. 4. Suspect significant underlying cardiac dysfunction. 5. Longstanding tobacco abuse. 6. Immunocompromised state secondary to renal transplantation on immunosuppressive drugs. RECOMMENDATIONS: At this point clearly I believe she has significant underlying obstructive lung disease, had an early exacerbation resulting in exacerbation of her underlying chronic respiratory failure which she was unaware of. Certainly, with a normal pH she has a resting pCO2 of greater than 55. I had a long discussion with her not only regarding the need for absolute smoking cessation but the fact that she likely will require home oxygen. My suspicion is that she probably had it for at least some time but was unaware of it. We will place her on a reasonable inhaler regimen. She thinks she had pulmonary function testing done in the outpatient setting and will try to track those down but clearly she needs to be reevaluated after discharge. She will be followed here she is here in the hospital. Adjustments have been made to her regimen. Also, DVT prophylaxis per the primary services. Further recommendations will be made in the progress records as new information becomes available. KULWINDER
[2020-07-10] MEDS: IPRATROPIUM 0.5MG/ALBUTEROL 2.5MG INH SOL UD 3ML (DUONEB) NEB SCH ×4 (12:00→23:56)
[2020-07-10] MEDS: TIOTROPIUM INHALER/CAPSULE (SPIRIVA) INH SCH (12:07)
[2020-07-10] MEDS: ADVAIR HFA 115/21MCG INHALER INH SCH ×2 (12:07→20:12)
--- NOTE | 2020-07-10 12:20 | IPNPDOC ---
Date Seen The patient was seen on 07/10/20. Progress Note SUBJECTIVE: Repeat ABG improved and likely near patient's normal pCO2. Currently saturating well on 3 L NC, pulmonary has assessed. PT/OT ordered. Denies increased SOB, chest pain, n/v/d. OBJECTIVE: PHYSICAL EXAMINATION: VS: Please see CONSTITUTIONAL:sitting up in chair, NAD, AAO x 3 HEENT, MOUTH: Normocephalic, atraumatic,PERRLA, EOM intact, moist mucous membranes, NC in place NECK: SUPPLE, no JVD, no lymphadenopathy, no carotid bruit CV: Regular rate and rhythm, S1S2 normal, no murmurs/rubs/gallops RESPIRATORY: improved breath sounds bilaterally, no rales/rhonchi/wheezes GI: Multiple well-healed scars on abd, BS positive in 4 quadrants, soft, nontender, nondistended, no rebound or guarding, no organomegaly : Deferred MUSCULOSKELETAL: Normal ROM. No cyanosis, clubbing, swelling, joint deformity, extremity edema INTEGUMENTARY: Intact, no rashes, no lesions, no erythema NEUROLOGIC: Cranial Nerves II-XII are intact, no focal deficits PSYCHIATRIC: Slightly confused but cooperative LABORATORY DATA: Please see below IMAGING: CTA chest: No evidence for pulmonary embolus. Mild bibasilar atelectasis and small pleural effusions are otherwise nonspecific. ASSESSMENT: 59 y/o F with PMH of CKD s/p renal transplant, HTN, tobacco use, HTN, ? COPD, hyperparathyroidism admitted to the ICU on bipap for acute hypercapnic respiratory failure 2/2 to possible COPD exacerbation. PLAN: Acute hypercapnic respiratory failure 2/2 to possible COPD exacerbation -Long time smoker, no prior official diagnosis but was suspected according to daughter -Improved ABG this AM, pH wnl, pCO2 50's and likely near her baseline -COVID neg, resp panel neg -Decreased methylprednisolone to Q12 H, duoneb ATC, albuterol PRN, spiriva, advair added -Dr. Anderson (pulmonary) has seen and suggested o/p follow up, suggested patient may require home O2 if cannot be weaned off. Elevated BNP, r/o CHF -No s/s of fluid overload on exam, small effusions on CT -No cardiac hx -BNP 2625 -Giving lasix x 1 again today, watch Cr was is renal transplant pt -C/w BB -F/u echocardiogram CKD Stage 4 s/p renal transplant -Cr 0.66 -C/w home medications, holding PO prednisone while on high methylprednisolone. f/u mycophenolate and tacrolimus levels -Dr. Anders personal vehicle advisor locally Hyperparathyroidism -PTH level high -To f/u as o/p with specialist to have parathyroid removed HTN -Stable -C/w home medications DVT px -Heparin SC DISPOSITION: Downgraded to med/surg from ICU. PT/OT today . Goal is home when medically improved. VS, I&O, 24H, [place] Vital Signs/I&O Vital Signs Date Time Temp Pulse Resp B/P (MAP) Pulse Ox O2 Delivery O2 Flow Rate FiO2 07/10/20 08:21 68 130/74 07/10/20 08:00 3.0 07/10/20 08:00 98.2 18 90 Nasal Cannula 07/09/20 16:00 30 I&O- Last 24 Hours up to 6 AM 07/10/20 06:00 Intake Total 980 ml Output Total 625 ml Balance 355 ml Laboratory Data 24H LABS Laboratory Tests 2 07/09/20 12:21: POC pH (Misc Panel) 7.236*L, POC Base Excess (Misc Panel) 14.0H, POC Saturated Percent O2 (Misc) 99H, POC pO2 (Misc Panel) 190.0H, POC pCO2 (Misc Panel) 97.7*H, POC HCO3 (Misc Panel) 41.5H, POC Total CO2 (Misc Panel) 44.0H 07/09/20 13:56: POC pH (Misc Panel) 7.352, POC Base Excess (Misc Panel) 11.0H, POC Saturated Percent O2 (Misc) 87L, POC pO2 (Misc Panel) 58.0L, POC pCO2 (Misc Panel) 66.7*H, POC HCO3 (Misc Panel) 37.0H, POC Total CO2 (Misc Panel) 39.0H 07/09/20 17:29: Blood Gas Bicarbonate Standard 32.9H, Arterial Blood pH 7.389, Arterial Blood Partial Pressure CO2 62.2*H, Arterial Blood Partial Pressure O2 51.8L, Arterial Blood Total CO2 38.6H, Arterial Blood HCO3 36.7H, Arterial Blood Base Excess 9.3H, Arterial Blood Oxygen Saturation 88.8L 07/10/20 00:51: Urine Color YELLOW, Urine Appearance CLOUDYH, Urine pH 5.0, Urine Specific [place] 1.019, Urine Protein NEGATIVE, Urine Glucose (UA) NEGATIVE, Urine Ketones NEGATIVE, Urine Blood NEGATIVE, Urine Nitrite NEGATIVE, Urine Bilirubin NEGATIVE, Urine Urobilinogen 0.2, Urine Leukocyte Esterase NEGATIVE, Urine WBC (Auto) 2, Urine RBC (Auto) 0, Urine Hyaline Casts (Auto) 0, Urine Bacteria (Auto) NEGATIVE, Urine Squamous Epithelial Cells 1, Urine Mucus (Auto) SMALL, Urine Sperm (Auto) 07/10/20 04:36: Nucleated Red Blood Cells % (auto) 0.0, Anion Gap 3L, Glomerular Filtration Rate > 60.0, Calcium Level 9.0, Total Bilirubin 0.4, Aspartate Amino Transf (AST/SGOT) 11, Alanine Aminotransferase (ALT/SGPT) 12, Alkaline Phosphatase 72, Total Protein 5.8L, Albumin 3.0L, Albumin/Globulin Ratio 1.1L 07/10/20 07:57: Blood Gas Bicarbonate Standard 30.9H, Arterial Blood pH 7.395, Arterial Blood Partial Pressure CO2 56.7H, Arterial Blood Partial Pressure O2 50.2L, Arterial Blood Total CO2 35.7H, Arterial Blood HCO3 33.9H, Arterial Blood Base Excess 7.3H, Arterial Blood Oxygen Saturation 88.1L 07/10/20 10:57: Lab Scanned Report Miscellaneous Lab CBC/BMP Laboratory Tests 07/10/20 04:36 Microbiology Microbiology 07/09/20 Respiratory Virus Panel (PCR) (SUDHIR) - Final, Complete 07/09/20 Blood Culture - Preliminary, Resulted No growth after 24 hours . All specim... 07/09/20 Blood Culture - Preliminary, Resulted No growth after 24 hours . All specim... Current Medications Current Medications Medications (Trade) Dose Ordered Sig/Melissa Route PRN Reason Start Time Stop Time Status Last Admin Dose Admin Acetaminophen (Tylenol Tab) 1,000 mg Q6H PRN PO PAIN 07/09/20 14:40 07/09/20 20:08 Albuterol Sulfate (Proventil Neb) 2.5 mg Q6HP PRN NEB SHORTNESS OF BREATH 07/09/20 14:40 Albuterol/ Ipratropium (Combivent Respimat 100-20mcg) 4 puff Q20M INH 07/09/20 10:20 3/9/21 11:01 DC 07/09/20 11:59 Albuterol/ Ipratropium (Duoneb (Ipr 0.5mg/Alb 2.5mg)) 3 ml RQ4H NEB 07/10/20 12:00 Chlorhexidine Gluconate (Peridex Oral Rinse) SWAB/BRUSH ORAL CAVITY BID MT 07/09/20 21:00 07/09/20 20:08 Heparin Sodium (Porcine) (Heparin) 5,000 units Q8H SC 07/09/20 22:00 07/10/20 06:15 Home Med (Med Rec Complete!) ASDIRECTED XX 07/09/20 14:25 07/09/20 14:25 DC Hydralazine HCl (Apresoline) 10 mg BID PO 07/09/20 21:00 07/09/20 20:08 Influenza Virus Vaccine (Flublok Quad(Egg-Free)18y&Older Influenza) 0.5 ml ASDIRECTED IM 07/09/20 17:05 Ipratropium [place] (Atrovent 0.02%) 0.5 mg RQID NEB 07/09/20 16:00 07/10/20 09:42 DC 07/10/20 07:58 Methylprednisolone (SOLUmedrol) 60 mg Q8H IV 07/09/20 19:00 07/10/20 11:22 Metoprolol Succinate (TopROL XL) 100 mg DAILY PO 07/09/20 09:00 07/10/20 08:21 Miscellaneous (Unresolved Patient Own Med Order) SEE LABEL COMMENTS DAILY XX 07/09/20 09:00 07/09/20 16:54 DC Nicotine (Nicoderm Cq 21mg) 1 patch DAILY TD 07/10/20 09:00 07/10/20 08:21 Non-Formulary Medication 1 ea QID PO 07/09/20 17:00 07/09/20 16:55 DC Patient Own Medication (Patient'S Own Med) MYCOPHENOLIC ACID DR 180MG TA... QID PO 07/09/20 17:00 07/10/20 08:20 Salmeterol Xinafoate/ Fluticasone (Advair Hfa 115/ 21) 2 puff RBID INH 07/10/20 08:00 Tacrolimus (Prograf) 2 mg BID PO 07/09/20 21:00 07/10/20 08:22 Tiotropium [place] (Spiriva Handihaler) 1 inhalation DAILY@08 INH 07/10/20 08:00 Allergies Coded Allergies: latex (Verified Allergy, Mild, RISK, 07/09/20) No Known Drug Allergies (Verified Allergy, Unknown, 07/09/20) Altagracia Rice MD Jul 10, 2020 12:20
[2020-07-11] MEDS: methylPREDNISolone 125MG 2ML VIAL IV SCH ×3 (03:37→22:00)
[2020-07-11] MEDS: IPRATROPIUM 0.5MG/ALBUTEROL 2.5MG INH SOL UD 3ML (DUONEB) NEB SCH ×6 (04:00→23:56)
[2020-07-11] MEDS: HEPARIN SOD (PORCINE) 5000UNITS/ML 1ML VIAL/SYRINGE SC SCH ×3 (05:47→21:55)
[2020-07-11 06:00] VITALS: BP 150/71
[2020-07-11 06:45] LABS: HEMATOCRIT 42.5 % (36.0-47.0); HEMOGLOBIN 12.6 g/dl (12.0-15.5); MEAN CORPUSCULAR HEMOGLOBIN 29.2 pg (27.0-33.0); MEAN CORPUSCULAR HGB CONC 29.6 g/dl (32.0-36.5); MEAN CORPUSCULAR VOLUME 98.4 fl (80.0-96.0); PLATELET COUNT, AUTOMATED 205 10^3/uL (150-450); RED BLOOD COUNT 4.32 10^6/uL (4.00-5.40); WHITE BLOOD COUNT 6.1 10^3/uL (4.0-10.0)
[2020-07-11 07:10] LABS: ALBUMIN 3.1 GM/DL (3.2-5.2); ALT/SGPT 13 U/L (12-78); BILIRUBIN,TOTAL 0.4 MG/DL (0.2-1.0); BLOOD UREA NITROGEN 15 MG/DL (7-18); CALCIUM LEVEL 9.6 MG/DL (8.8-10.2); CARBON DIOXIDE LEVEL 37 MEQ/L (21-32); CHLORIDE LEVEL 97 MEQ/L (98-107); CREATININE FOR GFR 0.66 MG/DL (0.55-1.30); GLOMERULAR FILTRATION RATE > 60.0 (>45); GLUCOSE, FASTING 157 MG/DL (70-100); POTASSIUM SERUM 3.6 MEQ/L (3.5-5.1); SODIUM LEVEL 137 MEQ/L (136-145); TOTAL PROTEIN 6.1 GM/DL (6.4-8.2)
[2020-07-11] MEDS: TIOTROPIUM INHALER/CAPSULE (SPIRIVA) INH SCH (07:37)
[2020-07-11] MEDS: ADVAIR HFA 115/21MCG INHALER INH SCH ×2 (07:37→20:06)
[2020-07-11 08:00] VITALS: BP 136/68
[2020-07-11] MEDS: CHLORHEXIDINE GLUCONATE 0.12 % 15ML UDC (PERIDEX ORAL RINSE) MT SCH ×3 (09:00→21:00)
--- NOTE | 2020-07-11 10:16 | ECHO ---
DATE OF PROCEDURE: 07/10/2020 Age: 59 Gender: Female Height: 64 inches Weight: 127 pounds Body surface area: 1.62 m2 PATIENT LOCATION: Inpatient ICU, Room 3202. REFERRING PHYSICIAN: Altagracia Rice M.D. INDICATION: Congestive heart failure (CHF). MEASUREMENTS: 2D Measurements: RV 4.2 cm LV 4.8 cm Septum 1.3 cm Posterior wall 1.3 cm Aortic Root 3.2 cm LA 4.1 cm LVEF 75-80% Doppler Measurements: AV 1.69 m/s LVOT 1.1 m/s MV-E 109, A 86, E/A ratio 1.3 Early mitral deceleration time 227 msec E prime medial 7, A prime medial 11.3, E prime lateral 8.2 Average E/E prime ratio 14.3/PCWP 19.7 mmHg PV 1.1 m/s Pulmonary artery acceleration time 100 msec RVSP 37 mmHg IVC 1.7 cm COMMENTS: Normal sinus rhythm without intraventricular conduction disturbance. M-mode and two-dimensional echocardiography was performed with pulse, continuous wave, color flow, and tissue Doppler studies. Mild concentric left ventricular hypertrophy with hyperkinetic wall motion. Mildly dilated left atrium with grade 2 LV diastolic dysfunction and current a mildly elevated estimated mean left atrial pressure. Slightly dilated right heart chambers with normal wall motion and Doppler evidence of mild pulmonary hypertension. Normal IVC size and collapse against an elevated central venous pressure. Normal aortic diameters. Normal appearing valvular structures with trace mitral and mild tricuspid insufficiency. No apparent intracardiac mass or pericardial effusion. MTDD
[2020-07-11] MEDS: MYCOPHENOLIC ACID 180 MG PO SCH ×4 (10:43→21:55)
[2020-07-11] MEDS: TACROLIMUS 1 MG CAP (J7507) PO SCH ×2 (10:44→21:55)
[2020-07-11] MEDS: NICOTINE 21MG/24HR 1 EA TRANSDERMAL TD SCH (10:46)
[2020-07-11] MEDS: METOPROLOL SUCC (TopROL XL) 100MG *XL* TAB PO SCH (10:47)
[2020-07-11] MEDS: **hydrALAZINE** 10 MG TAB PO SCH ×2 (10:48→21:55)
[2020-07-11 12:00] VITALS: BP 115/73
[2020-07-11 14:00] VITALS: BP 142/65
[2020-07-11] MEDS: ACETAMINOPHEN 500 MG TAB PO PRN (16:56)
--- NOTE | 2020-07-11 17:03 | IPNPDOC ---
Date Seen The patient was seen on 07/11/20. Progress Note SUBJECTIVE: Requiring 2-3 L NC with ambulation per nursing staff. Pulmonary following and will see as o/p. Deescalating steroids today, and if does well, can likely d/c in AM with PO prednisone taper. Denies increased chest pain, shortness of breath, n/v/d. OBJECTIVE: PHYSICAL EXAMINATION: VS: Please see CONSTITUTIONAL: sitting up in chair, NAD, AAO x 3 HEENT, MOUTH: Normocephalic, atraumatic,PERRLA, EOM intact, moist mucous membranes, NC in place NECK: SUPPLE, no JVD, no lymphadenopathy, no carotid bruit CV: Regular rate and rhythm, S1S2 normal, no murmurs/rubs/gallops RESPIRATORY: CTAB, no rales/rhonchi/wheezes GI: Multiple well-healed scars on abd, BS positive in 4 quadrants, soft, nontender, nondistended, no rebound or guarding, no organomegaly : Deferred MUSCULOSKELETAL: Normal ROM. No cyanosis, clubbing, swelling, joint deformity, extremity edema INTEGUMENTARY: Intact, no rashes, no lesions, no erythema NEUROLOGIC: Cranial Nerves II-XII are intact, no focal deficits PSYCHIATRIC: mood and affect appropriate LABORATORY DATA: Please see below IMAGING: Echocardiogram: EF 75-80% Normal sinus rhythm without intraventricular conduction disturbance. M-mode and two-dimensional echocardiography was performed with pulse, continuous wave, color flow, and tissue Doppler studies. Mild concentric left ventricular hypertrophy with hyperkinetic wall motion. Mildly dilated left atrium with grade 2 LV diastolic dysfunction and current a mildly elevated estimated mean left atrial pressure. Slightly dilated right heart chambers with normal wall motion and Doppler evidence of mild pulmonary hypertension. Normal IVC size and collapse against an elevated central venous pressure. Normal aortic diameters. Normal appearing valvular structures with trace mitral and mild tricuspid insufficiency. No apparent intracardiac mass or pericardial effusion. CTA chest: No evidence for pulmonary embolus. Mild bibasilar atelectasis and small pleural effusions are otherwise nonspecific. ASSESSMENT: 59 y/o F with PMH of CKD s/p renal transplant, HTN, tobacco use, HT N, ? COPD, hyperparathyroidism admitted to the ICU on bipap for acute hypercapnic respiratory failure 2/2 to possible COPD exacerbation. PLAN: Acute hypercapnic respiratory failure 2/2 to COPD exacerbation -Per pulmonary, prior PFTs showed obstructive process, long history of smoking -Walking test showed patient needs O2 with rest and activity, home O2 ordered -Wheezing resolved, feels improved -COVID neg, resp panel neg -Decreased methylprednisolone to Q12 H, c/w duoneb ATC, albuterol PRN, spiriva, advair -Script for nebulizer written, will write for albuterol PRN for home -Dr. Anderson (pulmonary) has seen and suggested o/p follow up with their office 2-3 weeks after discharge HFpEF, not currently in exacerbation -No s/s of fluid overload on exam, small effusions on CT -No cardiac hx, BNP 2625 -REceived intermittent lasix dosing, on BB -F/u with PCP, can be referred to cards as o/p if cannot be managed by primary CKD Stage 4 s/p renal transplant -Cr 0.66 -C/w home medications, holding PO prednisone while on high methylprednisolone. f/u mycophenolate and tacrolimus levels -Dr. Anders solar system designer aware she is here Hyperparathyroidism -PTH level high -To f/u as o/p with specialist to have parathyroid removed HTN -Stable -C/w home medications DVT px -Heparin SC DISPOSITION: Goal is home tomorrow if tolerates decreased steroid dosing, f/u with PCP and pulmonary will be arranged prior. VS, I&O, 24H, [place] Vital Signs/I&O Vital Signs Date Time Temp Pulse Resp B/P (MAP) Pulse Ox O2 Delivery O2 Flow Rate FiO2 07/11/20 14:00 98.4 84 19 142/65 (90) 93 Nasal Cannula 2.0 07/09/20 16:00 30 I&O- Last 24 Hours up to 6 AM 07/11/20 05:59 Intake Total 1990 ml Output Total 1175 ml Balance 815 ml Laboratory Data 24H LABS Laboratory Tests 2 07/11/20 06:20: Nucleated Red Blood Cells % (auto) 0.0, Anion Gap 3L, Glomerular Filtration Rate > 60.0, Calcium Level 9.6, Total Bilirubin 0.4, Aspartate Amino Transf (AST/SGOT) 12, Alanine Aminotransferase (ALT/SGPT) 13, Alkaline Phosphatase 69, Total Protein 6.1L, Albumin 3.1L, Albumin/Globulin Ratio 1.0L CBC/BMP Laboratory Tests 07/11/20 06:20 Microbiology Microbiology 07/09/20 Respiratory Virus Panel (PCR) (SUDHIR) - Final, Complete 07/09/20 Blood Culture - Preliminary, Resulted No Growth after 48 hours. All Specime... 07/09/20 Blood Culture - Preliminary, Resulted No Growth after 48 hours. All Specime... Current Medications Current Medications Medications (Trade) Dose Ordered Sig/Melissa Route PRN Reason Start Time Stop Time Status Last Admin Dose Admin Acetaminophen (Tylenol Tab) 1,000 mg Q6H PRN PO PAIN 07/09/20 14:40 07/11/20 16:56 Albuterol Sulfate (Proventil Neb) 2.5 mg Q6HP PRN NEB SHORTNESS OF BREATH 07/09/20 14:40 07/11/20 01:27 Albuterol/ Ipratropium (Combivent Respimat 100-20mcg) 4 puff Q20M INH 07/09/20 10:20 07/09/20 11:01 DC 07/09/20 11:59 Albuterol/ Ipratropium (Duoneb (Ipr 0.5mg/Alb 2.5mg)) 3 ml RQ4H NEB 07/10/20 12:00 07/11/20 15:09 Chlorhexidine Gluconate (Peridex Oral Rinse) SWAB/BRUSH ORAL CAVITY BID MT 07/09/20 21:00 07/09/20 20:08 Heparin Sodium (Porcine) (Heparin) 5,000 units Q8H SC 07/09/20 22:00 07/11/20 13:34 Home Med (Med Rec Complete!) ASDIRECTED XX 07/09/20 14:25 07/09/20 14:25 DC Hydralazine HCl (Apresoline) 10 mg BID PO 07/09/20 21:00 07/11/20 10:48 Influenza Virus Vaccine (Flublok Quad(Egg-Free)18y&Older Influenza) 0.5 ml ASDIRECTED IM 07/09/20 17:05 Ipratropium [place] (Atrovent 0.02%) 0.5 mg RQID NEB 07/09/20 16:00 07/10/20 09:42 DC 07/10/20 07:58 Methylprednisolone (SOLUmedrol) 60 mg Q8H IV 07/09/20 19:00 07/11/20 10:44 Metoprolol Succinate (TopROL XL) 100 mg DAILY PO 07/09/20 09:00 07/11/20 10:47 Miscellaneous (Unresolved Patient Own Med Order) SEE LABEL COMMENTS DAILY XX 07/09/20 09:00 07/09/20 16:54 DC Nicotine (Nicoderm Cq 21mg) 1 patch DAILY TD 07/10/20 09:00 07/11/20 10:46 Non-Formulary Medication 1 ea QID PO 07/09/20 17:00 07/09/20 16:55 DC Patient Own Medication (Patient'S Own Med) MYCOPHENOLIC ACID DR 180MG TA... QID PO 07/09/20 17:00 07/11/20 16:55 Salmeterol Xinafoate/ Fluticasone (Advair Hfa ) 2 puff RBID INH 07/10/20 08:00 07/11/20 07:37 Tacrolimus (Prograf) 2 mg BID PO 07/09/20 21:00 07/11/20 10:44 Tiotropium [place] (Spiriva Handihaler) 1 inhalation DAILY@08 INH 07/10/20 08:00 07/11/20 07:37 Allergies Coded Allergies: latex (Verified Allergy, Mild, RISK, 07/09/20) No Known Drug Allergies (Verified Allergy, Unknown, 07/09/20) Altagracia Rice MD Jul 11, 2020 17:03
[2020-07-11 22:00] VITALS: BP 135/72
[2020-07-12] MEDS: IPRATROPIUM 0.5MG/ALBUTEROL 2.5MG INH SOL UD 3ML (DUONEB) NEB SCH ×3 (02:58→11:14)
[2020-07-12 06:00] VITALS: BP 136/71
[2020-07-12 06:07] LABS: MYCOPHENOLIC ACID SERUM 0.5 ug/mL (1.0-3.5)
[2020-07-12] MEDS: HEPARIN SOD (PORCINE) 5000UNITS/ML 1ML VIAL/SYRINGE SC SCH (06:09)
[2020-07-12 06:38] LABS: HEMATOCRIT 42.5 % (36.0-47.0); HEMOGLOBIN 12.6 g/dl (12.0-15.5); MEAN CORPUSCULAR HEMOGLOBIN 28.6 pg (27.0-33.0); MEAN CORPUSCULAR HGB CONC 29.6 g/dl (32.0-36.5); MEAN CORPUSCULAR VOLUME 96.6 fl (80.0-96.0); PLATELET COUNT, AUTOMATED 202 10^3/uL (150-450); WHITE BLOOD COUNT 5.8 10^3/uL (4.0-10.0)
[2020-07-12 06:54] LABS: ALBUMIN 3.1 GM/DL (3.2-5.2); ALT/SGPT 28 U/L (12-78); BILIRUBIN,TOTAL 0.3 MG/DL (0.2-1.0); BLOOD UREA NITROGEN 11 MG/DL (7-18); CALCIUM LEVEL 9.3 MG/DL (8.8-10.2); CARBON DIOXIDE LEVEL 35 MEQ/L (21-32); CHLORIDE LEVEL 101 MEQ/L (98-107); CREATININE FOR GFR 0.59 MG/DL (0.55-1.30); GLOMERULAR FILTRATION RATE > 60.0 (>45); GLUCOSE, FASTING 164 MG/DL (70-100); POTASSIUM SERUM 3.9 MEQ/L (3.5-5.1); SODIUM LEVEL 139 MEQ/L (136-145); TOTAL PROTEIN 5.9 GM/DL (6.4-8.2)
[2020-07-12] MEDS: TIOTROPIUM INHALER/CAPSULE (SPIRIVA) INH SCH (07:32)
[2020-07-12] MEDS: ADVAIR HFA 115/21MCG INHALER INH SCH (07:32)
--- NOTE | 2020-07-12 08:09 | CR ---
CONSULTATION DATE: 07/10/2020 REASON FOR CONSULTATION: Altered mentation and increased shortness of breath in this lady with end-stage renal disease and kidney transplant. HISTORY OF PRESENT ILLNESS: Ms. Rader is a 59-year-old female with known history of hypertension, end-stage renal disease, for which she was on peritoneal dialysis for awhile and had a kidney transplant done, I believe, about 3 years ago and her renal function, and well-controlled hypertension. She presented to our office on July 09 for a routine followup and was quite altered and weak. She could not walk and was brought via wheelchair by her family member. She was found to be very confused and disoriented, due to which she was sent to the emergency room. She was found to have hypercapnic respiratory failure and was admitted with possible viral pneumonia. She has been treated with BiPAP overnight and improved significantly. A nephrology consultation was requested yesterday, and patient is seen this morning. MEDICAL HISTORY: Significant for: 1. Longstanding hypertension. 2. End-stage renal disease, status post kidney transplant in January 2017. 3. History of chronic obstructive pulmonary disease (COPD). 4. Hyperparathyroidism. SURGICAL HISTORY: Significant for: 1. Renal transplant. 2. Exploratory laparotomy for diverticulitis and bowel perforation. 3. History of sigmoid colectomy and colostomy with reversal. FAMILY HISTORY: Significant for chronic kidney disease and lung cancer in mother. PERSONAL AND SOCIAL HISTORY: Patient is a chronic smoker but denies any illicit drug use or alcohol use. She lives by herself, as she is for last couple of years. HOME MEDICATIONS: - calcium carbonate 600 mg twice a day - calcitriol 0.25 mcg five times a week - hydralazine 10 mg twice a day - metoprolol 100 mg daily - mycophenolate 180 mg two tablets twice a day - prednisone 5 mg daily - tacrolimus 2 mg twice a day ALLERGIES: She has allergy to latex. REVIEW OF SYSTEMS: At the time of my visit, patient is sitting in the chair fully alert but at the time of admission she was confused and weak. She denies any history of fever. Ears, nose, and throat are unremarkable. Cardiovascular system is negative for any chest pain or leg edema. Respiratory system is significant for COPD and chronic smoking. She was found to have hypercapnic respiratory failure yesterday. Genitourinary () system is negative for dysuria or hematuria. Her transplant kidney has been functioning well. Gastrointestinal (GI) system is negative for vomiting or diarrhea. Endocrine system is significant for secondary hyperparathyroidism. She has no diabetes or hypothyroidism. Hematologic system is negative for any long-term anticoagulation or history of anemia. Psychosocial system negative for depression or anxiety. Neurological system is negative for seizures or stroke. PHYSICAL EXAMINATION: At the time of my visit this morning, patient is awake and alert and sitting in the chair without any acute distress. Temperature is 98.3 degrees Fahrenheit, heart rate 68 per minute, respiratory rate 18 per minute. Blood pressure 101/54 mmHg and oxygen saturation 93%. Head is atraumatic. Ears, nose, and throat are unremarkable. Neck is supple and without jugular venous distention (JVD) or thyroid enlargement. Heart sounds are regular and lungs clear to auscultation. She has a systolic ejection murmur. She has an arteriovenous (AV) fistula in her left arm, which is patent. Abdomen is soft and nontender and without any palpable organomegaly. Transplant kidney is nontender. Extremities without any cyanosis or clubbing. Neurologically, she is awake, alert, and oriented times three at the time of my visit. LABORATORY DATA: WBC count 3.8, hemoglobin 12.9, hematocrit 45. Platelets 195. Her initial blood gas shows a pH of 7.30, pCO2 of 88, and pO2 of 201. A repeat blood gas yesterday showed pH of 7.23, pCO2 of 97.7, and pO2 of 190. Most recent blood gas this morning showed pH of 7.39, pCO2 of 56.7, and pO2 of 50.2. Her sodium is 141, potassium 4.6, CO2 of 38, BUN 13, and creatinine 0.63. Glucose 138 and calcium 9.0. Total protein 5.8 and albumin 3.0. PTH level was 178 yesterday. PROBLEMS: 1. Acute hypercapnic respiratory failure. Most likely multifactorial. She has been smoking chronically and also was using wood pellet stove for heating in her trailer home. She probably has chronic issue, which worsened during this winter due to excessive smoke inhalation. At this point, her condition has improved, and I have discussed with her about importance for quitting smoking. She has indicated that she will not smoke again. 2. Status post kidney transplant. Transplant kidney has been functioning very well and is still functioning normally. She does not have any proteinuria or hematuria. I will recommend to continue with her chronic immunosuppressive therapy, including mycophenolate, tacrolimus, and prednisone. 3. Hypertension. Blood pressure has been well controlled here in the hospital. She is taking minimal antihypertensive medications at present. I would suggest to avoid clonidine due to risk for affecting her respiratory status. 4. Chronic obstructive pulmonary disease (COPD) with CO2 retention. Patient understands to completely stop smoking. At this point she looks comfortable and will need close monitoring. I am not sure if she needs to continue with high-dose steroids. Thank you for involving me in the care of . I will follow along with you. KULWINDER
--- NOTE | 2020-07-12 08:10 | IPN ---
PROGRESS NOTE DATE: 07/11/2020 SUBJECTIVE: I again attended Balbina Rader here on the med-surg floor. The patient has been examined and chart reviewed. I spoke at length with the nurse at the bedside, as well as with Dr. Rice this morning. She slept well. Has no other new completely today. We had a very lengthy discussion regarding smoking cessation. OBJECTIVE: VITAL SIGNS: T-max overnight 98.3, blood pressure 131/50, heart rate in the 70s, respiratory rate 18 and unlabored. She remains on nasal cannula oxygen. HEENT: Head is normocephalic, atraumatic. Pupils react. NECK: Supple. Trachea is in the midline. CHEST: Diminished, but symmetric expansion. Mildly hyperresonance on percussion. Tactile fremitus diminished, but palpable. No focal adventitious breath sounds are identified. CARDIAC: Regular with no murmur or gallop. EXTREMITIES: Peripheral pulses palpable. No edema. ABDOMEN: Soft and nontender with active bowel sounds. No convincing organomegaly or masses. EXTREMITIES: Without cyanosis or clubbing. NEUROLOGIC: She is awake, alert, and appropriate. PSYCHIATRIC: Normal mood and affect. LABORATORY DATA: Show white blood cell count of 6.1, hemoglobin 12.6, platelet count 205,000. No diff. Sodium 137, K of 3.6, chloride 97, CO2 of 37, BUN 15, creatinine 0.66. MEDICATIONS: List has been reviewed. She remains on Advair and Spiriva, as well as p.r.n. Albuterol IMPRESSION: 1. Acute on chronic respiratory failure both hypoxic and hypercapnic. 2. Advanced obstructive lung disease. Previous PFTs with at least moderate obstruction. 3. Longstanding tobacco abuse up until the time of admission. 4. Status post renal transplantation. 5. High risk medications/immunosuppressives. RECOMMENDATIONS: At this point, I am in agreement with discharge plans. I will see her in the office in several weeks. She tells me she is actually moving in with friends and although they do smoke, she will be in a smoke free environment in the house she lives in. She plans on remaining tobacco free and was applauded for this. It is likely she will require home oxygen. This will be reassessed closer to discharge. We will see her in the office as outlined above. Likely update her PFTs. Further recommendations will be made in the progress record as new information becomes available.
--- NOTE | 2020-07-12 08:11 | IPN ---
PROGRESS NOTE DATE: 07/11/2020 SUBJECTIVE: Ms. Rader is seen this morning on her bedside. She is feeling much better, currently sitting in the bed. She reports that she slept well through the night. She denies any dyspnea, chest pain, nausea or vomiting. She is currently on 2 liter oxygen via nasal cannula. She was admitted with hypercapnic respiratory failure and was initially treated with BiPAP. PHYSICAL EXAMINATION: VITALS: Temperature 98.3 degrees Fahrenheit, heart rate 74 per minute, respiratory rate 20 per minute, blood pressure 136/68 mmHg and oxygen saturation 976%. HEENT: Head is atraumatic. Neck supple and without JVD or thyroid enlargement. LUNGS: Sound clear to auscultation.. HEART: Sounds are regular and systolic murmur is unchanged. ABDOMEN: Soft and nontender and without any palpable organomegaly. Transplant kidney is nontender. EXTREMITIES: Without any cyanosis or clubbing. NEUROLOGIC: She is awake, alert and oriented x3. LABORATORY DATA: Today's labs show WBC 6.1, hemoglobin 12.6, hematocrit 42.5. Sodium 137, potassium 3.6, chloride 97, CO2 37, BUN 15, creatinine 0.66. Glucose 157 this morning. PROBLEMS: 1. Acute hypercapnic respiratory failure: Most likely she has chronic issue with CO2 retention and she acutely decompensated. Her symptoms have improved. I would recommend to quickly taper down her steroids. 2. End-stage renal disease, status post kidney transplant: Her transplant kidney is functioning well with function at baseline. Chronic anti-rejection medications will be continued. 3. Hypertension: Blood pressure is also well controlled on her current antihypertensive medications. 4. Chronic smoking: Patient has already quit smoking. She is using nicotine patch and she is now quite confident that she will not go back to smoking again.
[2020-07-12] MEDS: NICOTINE 21MG/24HR 1 EA TRANSDERMAL TD SCH (08:12)
[2020-07-12] MEDS: MYCOPHENOLIC ACID 180 MG PO SCH ×2 (08:12→12:01)
[2020-07-12] MEDS: CHLORHEXIDINE GLUCONATE 0.12 % 15ML UDC (PERIDEX ORAL RINSE) MT SCH (08:12)
[2020-07-12 08:16] VITALS: BP 168/64
[2020-07-12] MEDS: METOPROLOL SUCC (TopROL XL) 100MG *XL* TAB PO SCH (08:16)
[2020-07-12] MEDS: **hydrALAZINE** 10 MG TAB PO SCH (08:16)
[2020-07-12] MEDS ORDERED: NICO21PAT TD (08:44)
[2020-07-12] MEDS ORDERED: TIOT18INH INH (08:44)
[2020-07-12] MEDS ORDERED: PRED20TA PO (08:44)
[2020-07-12] MEDS ORDERED: ALB2.5NEB NEB (08:44)
[2020-07-12] MEDS ORDERED: ADVA115A INH (08:44)
[2020-07-12] MEDS: TACROLIMUS 1 MG CAP (J7507) PO SCH (09:37)
[2020-07-12] MEDS ORDERED: INCR1INH INH (10:08)
[2020-07-12] MEDS: methylPREDNISolone 125MG 2ML VIAL IV SCH (12:01)
--- NOTE | 2020-07-12 16:27 | DS.PDOC ---
Discharge Summary General Date of Admission Jul 09, 2020 at 14:37 Date of Discharge 07/12/20 Attending Physician: Altagracia Rice MD Discharge Summary HISTORY OF PRESENT ILLNESS: Patient is a 59 y/o F with PMH of CKD s/p renal transplant, HTN, tobacco use, HTN, ? COPD, hyperparathyroidism who presented to [facility] with increased SOB. Patient was a poor historian due to forgetfulness so her daughter and HCP Devorah gave us more information about history. Per her daughter, she has been having increased SOB over the past several weeks. Other associated symptoms include dizziness, falls at home, lightheadedness, increased SOB, increased lethargy, poor sleep, unsteadiness. Today when the patient's daughter came to take her to her nephrology appointment, she was very forgetful, unsteady on her feet, confused and disoriented. They then proceeded to go to the nephrology office. Once they were there, they were sent to the ER via ambulance by the provider who had seen her. In the ER, RR 32-40, O2 sat 100% on 4 L NC. ABG showed pH 7.3 / pCO2 88 / pHCO3 43.5. She had decreased breath sounds bilaterally, was in respiratory distress and confused. Her repeat ABG showed to be worse with pH 7.23 / pCO2 97 / pHCO3 41. ER was advised to use bipap, steroids, nebulizers which helped immensely. D dimer was elevated, CTA chest showed small bilateral pleural effusions but no s/s of PNA, COVID and resp panel neg. BNP elevated at 2625, no hx of CHF, no prior echo on file. No s/s of fluid overload on exam. Patient was confused on exam but had much improved according to staff from when she first presented to the hospital. She denied chest pain, coughing, fevers, chills, n/v/d. Her daughter was contacted by myself to get additional information. She was later admitted to the ICU on bipap for acute hypercapnic respiratory failure 2/2 to possible COPD exacerbation. HOSPITAL COURSE: Patient was bipaped in ER but later taken off after being in ICU for several hours. ABGs improved and appear to be close to baseline with PCO2 in 50's. Her acute on chronic hypoxic and hypercapnic respiratory failure was likely 2/2 to COPD exacerbation. Per pulmonary who was consulted, prior PFTs showed obstructive process, long history of smoking. Walking test showed patient needs O2 with rest and activity, home O2 ordered 2 L NC. With IV methylprednisolone, wheezing resolved and patient felt improved. COVID neg, resp panel neg. She was kept on/started on albuterol PRN, advair, spiriva in addition to steroids. She has some HFpEF, not in exacerbation. She can be referred to cardiology as o/p by PCP if this should worsen. By 07/12/20 patient was much improved. Spiriva unable to be covered under insurance so Incruse Ellipta ordered in its place. She will sent home today with f/u with Dr. Anderson (pulmonary) in their office 2-3 weeks after discharge. All other chronic issues remained stable this stay. PAST MEDICAL HISTORY: Tobacco use COPD CKD s/p renal transplant Hyperparathyroidism PAST SURGICAL HISTORY: Renal transplant 01/2017 Exploratory laparotomy 06/04 to bowel perforation from diverticulitis S/p sigmoid colectomy with colostomy with reversal colostomy Diverting colostomy placed and later reversed 01/11/2009 FAMILY HISTORY: Father: CKD. early 30's. Mother: lung cancer. at 76 y/o SOCIAL HISTORY: Smoker 3 cigarettes per day, used to smoke up to 1 PPD, smoking 48 years. Social alcohol use, denies illicit drug use. Specialists she follows with include: Dr. Alatorre (transplant team in [facility] ), Nephrology Dr. Anders, [employer]. No PCP. Full Code. HCP daughter Devorah. DISCHARGE MEDICATIONS: Please see below PHYSICAL EXAMINATION: VS: Please see below CONSTITUTIONAL: sitting up in bed, NAD, AAO x 3 HEENT, MOUTH: Normocephalic, atraumatic, PERRLA, EOM intact, moist mucous membranes, NC in place NECK: SUPPLE, no JVD, no lymphadenopathy, no carotid bruit CV: Regular rate and rhythm, S1S2 normal, no murmurs/rubs/gallops RESPIRATORY: CTAB, no rales/rhonchi/wheezes GI: Multiple well-healed scars on abd, BS positive in 4 quadrants, soft, nontender, nondistended, no rebound or guarding, no organomegaly : Deferred MUSCULOSKELETAL: Normal ROM. No cyanosis, clubbing, swelling, joint deformity, extremity edema INTEGUMENTARY: Intact, no rashes, no lesions, no erythema NEUROLOGIC: Cranial Nerves II-XII are intact, no focal deficits PSYCHIATRIC: mood and affect appropriate LABORATORY DATA: Please see below IMAGING: Echocardiogram: EF 75-80% Normal sinus rhythm without intraventricular conduction disturbance. M-mode and two-dimensional echocardiography was performed with pulse, continuous wave, color flow, and tissue Doppler studies. Mild concentric left ventricular hypertrophy with hyperkinetic wall motion. Mildly dilated left atrium with grade 2 LV diastolic dysfunction and current a mildly elevated estimated mean left atrial pressure. Slightly dilated right heart chambers with normal wall motion and Doppler evidence of mild pulmonary hypertension. Normal IVC size and collapse against an elevated central venous pressure. Normal aortic diameters. Normal appearing valvular structures with trace mitral and mild tricuspid insufficiency. No apparent intracardiac mass or pericardial effusion. CTA chest: No evidence for pulmonary embolus. Mild bibasilar atelectasis and small pleural effusions are otherwise nonspecific. ASSESSMENT: 59 y/o F with PMH of CKD s/p renal transplant, HTN, tobacco use, HTN, ? COPD, hyperparathyroidism admitted to the ICU on bipap for acute hypercapnic respiratory failure 2/2 to possible COPD exacerbation. PLAN: Acute on chronic hypoxic and hypercapnic respiratory failure 2/2 to COPD exacerbation -Per pulmonary, prior PFTs showed obstructive process, long history of smoking -Walking test showed patient needs O2 with rest and activity, home O2 ordered 2 L NC -Wheezing resolved, feels improved -COVID neg, resp panel neg -Discharging home today with albuterol PRN, advair, prednisone taper. Spiriva unable to be covered under insurance so Incruse Ellipta ordered in its place -Script for home nebulizer -Dr. Anderson (pulmonary) has seen and suggested o/p follow up with their office 2-3 weeks after discharge HFpEF, not currently in exacerbation -No s/s of fluid overload on exam, small effusions on CT -No cardiac hx, BNP 2625 -Echo above -Received intermittent lasix dosing, on BB -F/u with PCP, can be referred to cards as o/p if cannot be managed by primary CKD Stage 4 s/p renal transplant -Cr 0.66 -C/w home medications, holding normal low-dose PO prednisone while on high dose taper. Can resume home maintenance she was previously on when taper is complete. -Would have nephrology, transplant team f/u mycophenolate and tacrolimus levels -Dr. Anders program management manager aware she is here Hyperparathyroidism -PTH level high -To f/u as o/p with specialist to have parathyroid removed HTN -Stable -C/w home medications DISPOSITION: D/c home today with home O2, new appt for PCP and pulmonary will be arranged prior. TIME SPENT ON DISCHARGE: 35 minutes. Vital Signs/I&Os Vital Signs Date Time Temp Pulse Resp B/P (MAP) Pulse Ox O2 Delivery O2 Flow Rate FiO2 07/12/20 09:00 2.0 07/12/20 08:16 72 168/64 07/12/20 06:00 97.5 19 98 Nasal Cannula 07/09/20 16:00 30 I&O- Last 24 Hours up to 6 AM 07/12/20 05:59 Intake Total 3230 ml Output Total 600 ml Balance 2630 ml Laboratory Data Labs 24H Laboratory Tests 2 07/12/20 05:40: Nucleated Red Blood Cells % (auto) 0.0, Anion Gap 3L, Glomerular Filtration Rate > 60.0, Calcium Level 9.3, Total Bilirubin 0.3, Aspartate Amino Transf (AST/SGOT) 28, Alanine Aminotransferase (ALT/SGPT) 28, Alkaline Phosphatase 68, Total Protein 5.9L, Albumin 3.1L, Albumin/Globulin Ratio 1.1L CBC/BMP Laboratory Tests 07/12/20 05:40 Microbiology Microbiology 07/09/20 Respiratory Virus Panel (PCR) (SUDHIR) - Final, Complete 07/09/20 Blood Culture - Preliminary, Resulted No Growth after 72 hours. All specime... 07/09/20 Blood Culture - Preliminary, Resulted No Growth after 72 hours. All specime... Discharge Medications Scheduled Calcitriol (Calcitriol) 0.25 Mcg Capsule, 0.25 MCG PO 5XW, (Reported) TAKES MON-FRI AT BEDTIME Calcium Carbonate/Vitamin D3 (Calcium 600 mg-Vit D3 10Mcg Tb) 600 Mg-400 Tablet, 1 TAB PO BID, (Reported) Fluticasone Propion/Salmeterol (Advair Hfa 115-21 Mcg Inhaler) 12 Gm Hfa.aer.ad, 2 PUFF INH RBID Hydralazine HCl (Hydralazine HCl) 10 Mg Tablet, 10 MG PO BID, (Reported) Metoprolol Succinate (Metoprolol Succinate) 100 Mg Tab.er.24h, 100 MG PO DAILY, (Reported) Mycophenolate Sodium (Mycophenolic Acid) 180 Mg Tablet.dr, 360 MG PO QID, (Reported) Nicotine (Nicotine Patch) 21 Mg Patch.td24, 1 PATCH TD DAILY Prednisone (Prednisone) 20 Mg Tablet, 60 MG PO DAILY 10 day prednisone taper: 60 mg PO x 4 days, 40 mg PO x 4 days, 20 mg x 2 days Tacrolimus (Tacrolimus) 1 Mg Capsule, 2 MG PO BID, (Reported) Umeclidinium Dixie (Incruse Ellipta) 62.5 Mcg Blst.w.dev, 1 PUFF INH DAILY Scheduled PRN Acetaminophen (Acetaminophen) 500 Mg Tablet, 1,000 MG PO Q6H PRN for PAIN, (Reported) Albuterol Sulfate (Albuterol Sulfate) 2.5 Mg/0.5 Ml Vial.neb, 2.5 MG NEB Q6HP PRN for SHORTNESS OF BREATH Allergies Coded Allergies: latex (Verified Allergy, Mild, RISK, 07/09/20) No Known Drug Allergies (Verified Allergy, Unknown, 07/09/20) Altagracia Rice MD Jul 12, 2020 16:27
--- NOTE | 2020-07-15 09:00 | IPN ---
PROGRESS NOTE DATE: 07/12/2020 Ms. Rader is seen this morning on her bedside. She is feeling well and denies any complaints at present. She is likely to go home today. Patient denies any nausea, vomiting, dyspnea, or chest pain. She is using oxygen via nasal cannula. She was admitted with altered mentation and noticed to have hypercapnic respiratory failure. She was initially treated with bilevel positive airway pressure (BiPAP); however, for the last 2 days now she has been doing well without any need for a BiPAP. She has stopped smoking since admission. PHYSICAL EXAMINATION: Temperature 97.5 degrees Fahrenheit, heart rate 72 per minute, respiratory rate 18 per minute, blood pressure 168/64 mmHg, and oxygen saturation 98%. Head is atraumatic. Neck supple, and jugular venous distention (JVD) is mildly elevated. She has no oral thrush or ulcers. Heart sounds are regular with systolic murmur, grade 2/6. Lungs clear to auscultation. Abdomen soft and nontender, and bowel sounds are normal. Transplant kidney in right lower quadrant is nontender. Extremities without any cyanosis or clubbing. Neurologically, she is awake, alert, and oriented times three. Today's labs show WBC count 5.8, hemoglobin 12.6, and hematocrit 42.5. Sodium 130, potassium 3.9, CO2 of 35, BUN 11, and creatinine 0.59. Glucose 9.3. Albumin is 3.1. Her respiratory viral panel has come back negative. PROBLEMS: 1. End-stage renal disease, status post kidney transplant. Kidney function is stable at baseline. She will continue with chronic antirejection medications. 2. Respiratory failure. She had hypercapnic respiratory failure related to smoking and probably her home situation. At this point, she has improved significantly, and she has already stopped smoking. She understands not to resume smoking again. She will followup with pulmonary as an outpatient. 3. Hypertension. Blood pressure is reasonable, and she should continue with chronic antihypertensive medications.
== END 2020-07-12 13:22 | disposition home or self-care (01) | DRG 133 ==
LOC: M ED 10:05 → EDBD 10:05 → M ED INP 14:37 → ENRESERV 15:14 → M ICU 15:35 → M MSPAV 07-10 13:40
PROVIDERS: ADMIT Internal Medicine; ATTEND Internal Medicine
DX: J96.22 Acute and chronic respiratory failure with hypercapnia (principal); I11.0 Hypertensive heart disease with heart failure; I50.32 Chronic diastolic (congestive) heart failure; J44.1 Chronic obstructive pulmonary disease with (acute) exacerbation; J96.21 Acute and chronic respiratory failure with hypoxia; E21.3 Hyperparathyroidism, unspecified; F17.210 Nicotine dependence, cigarettes, uncomplicated; Z90.49 Acquired absence of other specified parts of digestive tract; Z94.0 Kidney transplant status; Z20.822 Contact with and (suspected) exposure to COVID-19; Z79.52 Long term (current) use of systemic steroids; Z79.899 Other long term (current) drug therapy; Z91.040 Latex allergy status

== ENCOUNTER → 2020-07-09 | Outpatient (REF) | payer OTHER, MEDICAID ==
[~2020-07-09] MED LIST changes: +ACET-840 PO; +CALC-356 PO; +CALC1CAP31 PO; +HYDR10TAB PO; +METO1TAB33 PO; +MYCO1TAB PO; +PRED5TA PO; +TACR1CAP3 PO
== END ==
LOC: M LAB REF 16:44
PROVIDERS: ATTEND Nurse Practitioner Family
DX: Z94.0 Kidney transplant status (principal)

== ENCOUNTER → 2020-11-27 | Outpatient (REF) | payer OTHER, MEDICAID ==
[~2020-11-27] MED LIST changes: +ACET-840 PO; +ADVA115A INH; +ALB2.5NEB NEB; +CALC-356 PO; +CALC1CAP31 PO; +HYDR10TAB PO; +INCR1INH INH; +METO1TAB33 PO; +MYCO1TAB PO; +NICO21PAT TD; +PRED20TA PO; +PRED5TA PO; +TACR1CAP3 PO; +TIOT18INH INH
== END ==
LOC: M LAB REF 17:46
PROVIDERS: ATTEND Internal Medicine Nephrology
DX: Z94.0 Kidney transplant status (principal); E83.42 Hypomagnesemia

== ENCOUNTER → 2021-02-20 | Outpatient (REF) | payer OTHER, MEDICAID | LOC: M LAB REF 13:22 | PROVIDERS: ATTEND Internal Medicine Nephrology | DX: Z94.0 Kidney transplant status (principal); E83.42 Hypomagnesemia ==

== ENCOUNTER → 2021-08-22 | Outpatient (REF) | payer OTHER, MEDICAID | LOC: M LAB REF 16:38 | PROVIDERS: ATTEND Internal Medicine Nephrology | DX: Z94.0 Kidney transplant status (principal) ==

== ENCOUNTER → 2022-03-02 | Outpatient (REF) | payer OTHER, MEDICAID | LOC: M LAB REF 17:33 | PROVIDERS: ATTEND Internal Medicine Nephrology | DX: Z94.0 Kidney transplant status (principal) ==

== ENCOUNTER → 2022-11-12 | Outpatient (CLI) | payer OTHER | LOC: M RAD 09:47 | PROVIDERS: ATTEND Internal Medicine Nephrology | DX: E21.0 Primary hyperparathyroidism (principal) | CPT/HCPCS: 78070; 78803; A9500 ==

== ENCOUNTER 2023-03-04 17:18 | Inpatient (IN) | payer OTHER ==
[~2023-03-04] VITALS: Ht 162.6 cm; Wt 64.8 kg
[2023-03-04] MEDS ORDERED: NS 1,000 ML IV SCH (17:45)
[2023-03-04] MEDS ORDERED: ONDANSETRON 4MG 2ML VIAL IV ONE (17:45)
[2023-03-04 18:05] LABS: VENOUS BASE EXCESS -4.7 (-2.0-2.0); VENOUS HCO3 17.9 MMOL/L (23.0-27.0); VENOUS O2 SATURATION 88.5 % (60.0-80.0); VENOUS PARTIAL PRESSURE CO2 28.2 mmHg (38.0-50.0); VENOUS PARTIAL PRESSURE O2 51.1 mmHg (30.0-50.0); VENOUS PH 7.421 UNITS (7.330-7.430); VENOUS STANDARD HCO3 20.4 MMOL/L; VENOUS TOTAL CO2 18.8 MMOL/L (24.0-28.0)
[2023-03-04 18:34] LABS: ALBUMIN 3.6 G/DL (3.2-5.2); ALKALINE PHOSPHATASE 90 U/L (46-116); ALT/SGPT 27 U/L (7.0-40); AST/SGOT 46 U/L (<34); BILIRUBIN,TOTAL 0.5 MG/DL (0.3-1.2); BLOOD UREA NITROGEN 13 MG/DL (9-23); CALCIUM LEVEL 9.4 MG/DL (8.3-10.6); CARBON DIOXIDE LEVEL 20 MMOL/L (20-31); CHLORIDE LEVEL 96 MMOL/L (98-107); CREATININE FOR GFR 0.85 MG/DL (0.55-1.30); GLOMERULAR FILTRATION RATE > 60.0 (>45); GLUCOSE, FASTING 173 MG/DL (74-106); LDH LACTATE DEHYDROGENASE 276 U/L (120-246); MAGNESIUM LEVEL 1.3 MG/DL (1.8-2.4); POTASSIUM SERUM 3.6 MMOL/L (3.5-5.1); SODIUM LEVEL 131 MMOL/L (136-145); TOTAL PROTEIN 6.8 G/DL (5.7-8.2)
[2023-03-04] MEDS ORDERED: MAG SULF 1GM/100ML (MAG RUN) 1 GM in IV 1 EA IV ONE (18:40)
[2023-03-04] MEDS ORDERED: ACETAMINOPHEN 325 MG TAB PO ONE (18:40)
[2023-03-04] MEDS ORDERED: MED REC IN PROGRESS XX SCH (18:45)
[2023-03-04 18:46] LABS: PROCALCITONIN 11.19 ng/ml
[2023-03-04 19:01] LABS: BASO # 0.1 10^3/uL (0.0-0.2); BASO % 0.6 % (0.0-1.0); EOS % 0.1 % (0.0-3.0); HEMATOCRIT 50.2 % (36.0-47.0); HEMOGLOBIN 16.4 g/dl (12.0-15.5); LYMPH # 0.8 10^3/uL (1.5-5.0); LYMPH % 5.3 % (24.0-44.0); MEAN CORPUSCULAR HGB CONC 32.7 g/dl (32.0-36.5); MEAN CORPUSCULAR VOLUME 88.8 fl (80.0-96.0); MONO # 0.7 10^3/uL (0.0-0.8); MONO % 5.1 % (2.0-8.0); NEUTROPHILS # 12.5 10^3/uL (1.5-8.5); NEUTROPHILS % 88.2 % (36.0-66.0); PLATELET COUNT, AUTOMATED 135 10^3/uL (150-450); RED BLOOD COUNT 5.65 10^6/uL (4.00-5.40); WHITE BLOOD COUNT 14.1 10^3/uL (4.0-10.0)
[2023-03-04] MEDS ORDERED: CINA30TA5 PO (19:06)
[2023-03-04] MEDS ORDERED: PRED5TA PO (19:06)
[2023-03-04] MEDS ORDERED: HYDR-3910 PO (19:06)
[2023-03-04] MEDS ORDERED: MAGN400T2 PO (19:08)
[2023-03-04] MEDS ORDERED: ACETAMINOPHEN TAB 650MG DOSE (2X325MG) PO PRN (19:15)
[2023-03-04] MEDS ORDERED: MOM 30ML SUSPENSION UDC PO PRN (19:15)
[2023-03-04] MEDS ORDERED: HOME MED LIST COMPLETE! XX SCH (19:25)
[2023-03-04] MEDS ORDERED: ACETAMINOPHEN 500 MG TAB PO PRN (19:30)
[2023-03-04 20:04] LABS: INR 1.14; PROTHROMBIN TIME 14.3 SECONDS (12.5-14.5)
[2023-03-04 20:05] LABS: PARTIAL THROMBOPLASTIN TIME 37.2 SECONDS (24.8-34.2)
[2023-03-04] MEDS: ADVAIR HFA 115/21MCG INHALER INH SCH (20:05)
[2023-03-04 21:10] VITALS: BP 116/59; TEMP 96.8; O2SAT 92
[2023-03-04] MEDS: **hydrALAZINE HCL** 25 MG TAB PO SCH (21:26)
[2023-03-04] MEDS: NS 1,000 ML IV SCH (21:26)
[2023-03-04] MEDS: TACROLIMUS 1MG CAP PO SCH (21:26)
[2023-03-04 21:54] VITALS: O2SAT 98
[2023-03-04] MEDS ORDERED: REMDESIVIR 200 MG in NS 250 ML IV ONE (22:00)
[2023-03-05] VITALS (8 sets, daily range): BP systolic 125–151; BP diastolic 60–70; TEMP 97.3–98.1; O2SAT 86–95
[2023-03-05] MEDS: PIPERACILLIN/TAZOBACTAM SOD 3.375 GM in D5W MINI-BAG PLUS 50 ML IV SCH ×5 (00:15→23:32)
[2023-03-05] MEDS: NS 1,000 ML IV SCH ×3 (05:07→19:38)
[2023-03-05 06:06] LABS: BASO % 0.1 % (0.0-1.0); HEMATOCRIT 44.7 % (36.0-47.0); LYMPH # 0.4 10^3/uL (1.5-5.0); LYMPH % 4.6 % (24.0-44.0); MEAN CORPUSCULAR HGB CONC 32.2 g/dl (32.0-36.5); MEAN CORPUSCULAR VOLUME 89.9 fl (80.0-96.0); MONO # 0.3 10^3/uL (0.0-0.8); NEUTROPHILS # 7.3 10^3/uL (1.5-8.5); NEUTROPHILS % 90.9 % (36.0-66.0); PLATELET COUNT, AUTOMATED 108 10^3/uL (150-450); RED BLOOD COUNT 4.97 10^6/uL (4.00-5.40)
[2023-03-05 06:08] LABS: HEMOGLOBIN 14.4 g/dl (12.0-15.5)
[2023-03-05 06:21] LABS: LDH LACTATE DEHYDROGENASE 247 U/L (120-246)
[2023-03-05 06:26] LABS: ALBUMIN 2.7 G/DL (3.2-5.2); ALKALINE PHOSPHATASE 66 U/L (46-116); ALT/SGPT 22 U/L (7.0-40); AST/SGOT 40 U/L (<34); BILIRUBIN,DIRECT 0.1 MG/DL (<0.4); BILIRUBIN,TOTAL 0.2 MG/DL (0.3-1.2); BLOOD UREA NITROGEN 17 MG/DL (9-23); CALCIUM LEVEL 8.8 MG/DL (8.3-10.6); CARBON DIOXIDE LEVEL 22 MMOL/L (20-31); CHLORIDE LEVEL 101 MMOL/L (98-107); CREATININE FOR GFR 0.85 MG/DL (0.55-1.30); FERRITIN 735.4 NG/ML (7.3-270.7); GLOMERULAR FILTRATION RATE > 60.0 (>45); GLUCOSE, FASTING 213 MG/DL (74-106); MAGNESIUM LEVEL 1.8 MG/DL (1.8-2.4); POTASSIUM SERUM 3.8 MMOL/L (3.5-5.1); SODIUM LEVEL 134 MMOL/L (136-145); TOTAL PROTEIN 5.3 G/DL (5.7-8.2)
[2023-03-05] MEDS: UNRESOLVED CLARIFICATION ENTRY XX SCH ×2 (07:45→23:32)
[2023-03-05] MEDS: ADVAIR HFA 115/21MCG INHALER INH SCH ×2 (07:48→19:26)
[2023-03-05] MEDS: TIOTROPIUM INHALER/CAPSULE (SPIRIVA) INH SCH (07:48)
[2023-03-05] MEDS: TACROLIMUS 1MG CAP PO SCH ×2 (09:46→19:37)
[2023-03-05] MEDS: CINACALCET 30 MG TAB (SENSIPAR) PO SCH (09:46)
[2023-03-05] MEDS: ENOXAPARIN 40MG/0.4ML SYRINGE (J1650 PER 10MG) SC SCH (09:46)
[2023-03-05] MEDS: METOPROLOL SUCC (TopROL XL) 100MG *XL* TAB PO SCH (09:47)
[2023-03-05] MEDS: **hydrALAZINE HCL** 25 MG TAB PO SCH ×2 (09:47→19:37)
[2023-03-05] MEDS: predniSONE 5 MG TAB PO SCH (09:47)
[2023-03-05] MEDS: MAGNESIUM OXIDE 400MG TAB (MAG-OX) PO SCH (09:48)
[2023-03-05] MEDS: dexAMETHasone 20MG/5ML VIAL IV SCH (16:04)
[2023-03-05] MEDS: REMDESIVIR 100 MG in NS 250 ML IV SCH (19:37)
[2023-03-06] VITALS (12 sets, daily range): BP systolic 144–157; BP diastolic 66–68; TEMP 97–98.2; O2SAT 84–98
[2023-03-06] MEDS: PIPERACILLIN/TAZOBACTAM SOD 3.375 GM in D5W MINI-BAG PLUS 50 ML IV SCH ×4 (05:00→23:08)
[2023-03-06 05:44] LABS: HEMATOCRIT 40.9 % (36.0-47.0); HEMOGLOBIN 13.2 g/dl (12.0-15.5); LYMPH # 0.3 10^3/uL (1.5-5.0); LYMPH % 5.3 % (24.0-44.0); MEAN CORPUSCULAR HEMOGLOBIN 28.8 pg (27.0-33.0); MEAN CORPUSCULAR HGB CONC 32.3 g/dl (32.0-36.5); MEAN CORPUSCULAR VOLUME 89.3 fl (80.0-96.0); MONO # 0.2 10^3/uL (0.0-0.8); NEUTROPHILS # 5.4 10^3/uL (1.5-8.5); NEUTROPHILS % 90.4 % (36.0-66.0); PLATELET COUNT, AUTOMATED 115 10^3/uL (150-450); RED BLOOD COUNT 4.58 10^6/uL (4.00-5.40)
[2023-03-06 06:00] LABS: ALBUMIN 2.4 G/DL (3.2-5.2); ALKALINE PHOSPHATASE 52 U/L (46-116); ALT/SGPT 20 U/L (7.0-40); AST/SGOT 37 U/L (<34); BILIRUBIN,TOTAL 0.3 MG/DL (0.3-1.2); BLOOD UREA NITROGEN 21 MG/DL (9-23); CALCIUM LEVEL 8.1 MG/DL (8.3-10.6); CARBON DIOXIDE LEVEL 23 MMOL/L (20-31); CHLORIDE LEVEL 107 MMOL/L (98-107); CREATININE FOR GFR 0.86 MG/DL (0.55-1.30); GLOMERULAR FILTRATION RATE > 60.0 (>45); GLUCOSE, FASTING 166 MG/DL (74-106); POTASSIUM SERUM 3.4 MMOL/L (3.5-5.1); SODIUM LEVEL 140 MMOL/L (136-145); TOTAL PROTEIN 4.8 G/DL (5.7-8.2)
[2023-03-06] MEDS ORDERED: POTASSIUM CHLORIDE 10MEQ SR TABLET PO ONE (07:15)
[2023-03-06] MEDS: TIOTROPIUM INHALER/CAPSULE (SPIRIVA) INH SCH (07:19)
[2023-03-06] MEDS: ADVAIR HFA 115/21MCG INHALER INH SCH ×2 (07:19→19:39)
[2023-03-06] MEDS: dexAMETHasone 20MG/5ML VIAL IV SCH (09:56)
[2023-03-06] MEDS: ENOXAPARIN 40MG/0.4ML SYRINGE (J1650 PER 10MG) SC SCH (09:56)
[2023-03-06] MEDS: TACROLIMUS 1MG CAP PO SCH ×2 (09:57→20:56)
[2023-03-06] MEDS: CINACALCET 30 MG TAB (SENSIPAR) PO SCH (09:57)
[2023-03-06] MEDS: predniSONE 5 MG TAB PO SCH (09:57)
[2023-03-06] MEDS: **hydrALAZINE HCL** 25 MG TAB PO SCH ×2 (09:58→20:57)
[2023-03-06] MEDS: MAGNESIUM OXIDE 400MG TAB (MAG-OX) PO SCH (09:58)
[2023-03-06] MEDS: METOPROLOL SUCC (TopROL XL) 100MG *XL* TAB PO SCH (09:58)
[2023-03-06] MEDS: NS 1,000 ML IV SCH ×2 (12:12→23:08)
[2023-03-06] MEDS: REMDESIVIR 100 MG in NS 250 ML IV SCH (20:57)
[2023-03-07] VITALS (14 sets, daily range): BP systolic 111–176; BP diastolic 69–82; TEMP 97.1–98.1; O2SAT 87–100
[2023-03-07] MEDS ORDERED: diphenhydrAMINE 50MG CAP PO ONE (02:00)
[2023-03-07] MEDS: PIPERACILLIN/TAZOBACTAM SOD 3.375 GM in D5W MINI-BAG PLUS 50 ML IV SCH ×4 (05:25→23:09)
[2023-03-07 05:58] LABS: HEMATOCRIT 36.9 % (36.0-47.0); HEMOGLOBIN 11.9 g/dl (12.0-15.5); MEAN CORPUSCULAR HEMOGLOBIN 29.5 pg (27.0-33.0); MEAN CORPUSCULAR HGB CONC 32.2 g/dl (32.0-36.5); MEAN CORPUSCULAR VOLUME 91.3 fl (80.0-96.0); PLATELET COUNT, AUTOMATED 112 10^3/uL (150-450); RED BLOOD COUNT 4.04 10^6/uL (4.00-5.40); WHITE BLOOD COUNT 4.6 10^3/uL (4.0-10.0)
[2023-03-07] MEDS ORDERED: **hydrALAZINE HCL** 25 MG TAB PO SCH (06:00)
[2023-03-07 06:24] LABS: ALBUMIN 2.4 G/DL (3.2-5.2); BILIRUBIN,TOTAL 0.2 MG/DL (0.3-1.2); CALCIUM LEVEL 7.8 MG/DL (8.3-10.6); CREATININE FOR GFR 1.05 MG/DL (0.55-1.30); GLOMERULAR FILTRATION RATE 56.2 (>45); TOTAL PROTEIN 4.7 G/DL (5.7-8.2)
[2023-03-07] MEDS ORDERED: PANTOPRAZOLE 40MG VIAL IV ONE (07:00)
[2023-03-07] MEDS: ADVAIR HFA 115/21MCG INHALER INH SCH ×2 (07:27→19:02)
[2023-03-07] MEDS: TIOTROPIUM INHALER/CAPSULE (SPIRIVA) INH SCH (07:29)
[2023-03-07] MEDS: dexAMETHasone 20MG/5ML VIAL IV SCH (07:51)
[2023-03-07] MEDS: METOPROLOL SUCC (TopROL XL) 100MG *XL* TAB PO SCH (07:52)
[2023-03-07] MEDS: CINACALCET 30 MG TAB (SENSIPAR) PO SCH (07:53)
[2023-03-07] MEDS: MAGNESIUM OXIDE 400MG TAB (MAG-OX) PO SCH (07:53)
[2023-03-07] MEDS: **hydrALAZINE HCL** 25 MG TAB PO SCH ×2 (07:53→20:27)
[2023-03-07] MEDS: predniSONE 5 MG TAB PO SCH (07:53)
[2023-03-07] MEDS: ENOXAPARIN 40MG/0.4ML SYRINGE (J1650 PER 10MG) SC SCH (07:54)
[2023-03-07] MEDS: TACROLIMUS 1MG CAP PO SCH ×2 (07:54→20:27)
[2023-03-07] MEDS: REMDESIVIR 100 MG in NS 250 ML IV SCH (20:27)
[2023-03-07] MEDS ORDERED: hydrALAZINE 20MG/ML 1ML VIAL IV ONE (23:25)
[2023-03-08] MEDS ORDERED: **hydrALAZINE HCL** 25 MG TAB PO ONE
[2023-03-08 00:07] VITALS: BP 190/76; TEMP 98.1; O2SAT 94; O2SAT 95
[2023-03-08 04:16] VITALS: BP 184/90; TEMP 97.3; O2SAT 93
[2023-03-08 04:22] VITALS: O2SAT 95
[2023-03-08] MEDS ORDERED: hydrALAZINE 20MG/ML 1ML VIAL IV ONE (04:25)
[2023-03-08] MEDS ORDERED: NITROGLYCERIN 2% OINT 1 GM *U/D* PKT TOP ONE (05:00)
[2023-03-08] MEDS: PIPERACILLIN/TAZOBACTAM SOD 3.375 GM in D5W MINI-BAG PLUS 50 ML IV SCH ×2 (05:05→12:00)
[2023-03-08 05:19] LABS: HEMOGLOBIN 11.9 g/dl (12.0-15.5); MEAN CORPUSCULAR HEMOGLOBIN 28.6 pg (27.0-33.0); MEAN CORPUSCULAR HGB CONC 32.2 g/dl (32.0-36.5); MEAN CORPUSCULAR VOLUME 88.9 fl (80.0-96.0); PLATELET COUNT, AUTOMATED 106 10^3/uL (150-450); RED BLOOD COUNT 4.16 10^6/uL (4.00-5.40); WHITE BLOOD COUNT 4.3 10^3/uL (4.0-10.0)
[2023-03-08 05:49] LABS: ALBUMIN 2.6 G/DL (3.2-5.2); ALKALINE PHOSPHATASE 41 U/L (46-116); ALT/SGPT 26 U/L (7.0-40); AST/SGOT 39 U/L (<34); BILIRUBIN,TOTAL 0.4 MG/DL (0.3-1.2); BLOOD UREA NITROGEN 22 MG/DL (9-23); CALCIUM LEVEL 7.7 MG/DL (8.3-10.6); CARBON DIOXIDE LEVEL 24 MMOL/L (20-31); CHLORIDE LEVEL 110 MMOL/L (98-107); CREATININE FOR GFR 0.93 MG/DL (0.55-1.30); GLOMERULAR FILTRATION RATE > 60.0 (>45); GLUCOSE, FASTING 104 MG/DL (74-106); POTASSIUM SERUM 3.9 MMOL/L (3.5-5.1); PTH INTACT 200.5 PG/ML (18.5-88.0); SODIUM LEVEL 141 MMOL/L (136-145); TOTAL PROTEIN 4.8 G/DL (5.7-8.2)
[2023-03-08] MEDS: TIOTROPIUM INHALER/CAPSULE (SPIRIVA) INH SCH (07:37)
[2023-03-08] MEDS: ADVAIR HFA 115/21MCG INHALER INH SCH (07:37)
[2023-03-08 08:32] VITALS: BP 178/82
[2023-03-08 08:33] VITALS: BP 178/82
[2023-03-08] MEDS: METOPROLOL SUCC (TopROL XL) 100MG *XL* TAB PO SCH (08:33)
[2023-03-08] MEDS: TACROLIMUS 1MG CAP PO SCH (08:33)
[2023-03-08] MEDS: predniSONE 5 MG TAB PO SCH (08:33)
[2023-03-08] MEDS: CINACALCET 30 MG TAB (SENSIPAR) PO SCH (08:34)
[2023-03-08] MEDS: MAGNESIUM OXIDE 400MG TAB (MAG-OX) PO SCH (08:34)
[2023-03-08] MEDS: ENOXAPARIN 40MG/0.4ML SYRINGE (J1650 PER 10MG) SC SCH (08:35)
[2023-03-08] MEDS ORDERED: **hydrALAZINE HCL** 25 MG TAB PO SCH (09:00)
[2023-03-08] MEDS ORDERED: PRED20TA PO (09:29)
[2023-03-08] MEDS ORDERED: AMOX875T2 PO (09:32)
[2023-03-08] MEDS ORDERED: PROB250C PO (09:32)
== END 2023-03-08 15:21 | disposition home or self-care (01) | DRG 137 ==
LOC: M ED 17:18 → M ED INP 19:12 → M MSPAV 21:06
PROVIDERS: ADMIT Internal Medicine; ATTEND Internal Medicine
PROC: XW033E5 Introduction of Remdesivir Anti-infective into Peripheral Vein, Percutaneous Approach, New Technology Group 5 (ICD-10-PCS; principal; 2023-03-04)
PROC: 3E0333Z Introduction of Anti-inflammatory into Peripheral Vein, Percutaneous Approach (ICD-10-PCS; 2023-03-04)
DX: U07.1 COVID-19 (principal); J96.01 Acute respiratory failure with hypoxia; G93.41 Metabolic encephalopathy; J15.9 Unspecified bacterial pneumonia; E86.0 Dehydration; Z94.0 Kidney transplant status; I10 Essential (primary) hypertension; J44.1 Chronic obstructive pulmonary disease with (acute) exacerbation; J44.0 Chronic obstructive pulmonary disease with (acute) lower respiratory infection; E87.6 Hypokalemia; E21.3 Hyperparathyroidism, unspecified; F17.210 Nicotine dependence, cigarettes, uncomplicated; K52.9 Noninfective gastroenteritis and colitis, unspecified; Z79.52 Long term (current) use of systemic steroids; Z79.899 Other long term (current) drug therapy; Z91.040 Latex allergy status; Z79.621 Long term (current) use of calcineurin inhibitor

== ENCOUNTER → 2023-04-02 | Outpatient (REF) | payer OTHER, MEDICAID ==
[~2023-04-02] MED LIST changes: +AMOX875T2 PO; +CINA30TA5 PO; +HYDR-3910 PO; +MAGN400T2 PO; +PROB250C PO
== END ==
LOC: M LAB REF 17:10
PROVIDERS: ATTEND Internal Medicine Nephrology
DX: Z94.0 Kidney transplant status (principal)

== ENCOUNTER 2023-05-29 09:25 | Emergency (ER) | payer OTHER ==
[~2023-05-29] VITALS: Ht 162.6 cm; Wt 67.8 kg
[~2023-05-29 09:25] MED LIST changes: +HYDR-161 PO; -HYDR10TAB PO
[2023-05-29 09:27] VITALS: BP 166/72; TEMP 99; O2SAT 94
[2023-05-29] MEDS ORDERED: PRED5TA (09:43)
[2023-05-29] MEDS ORDERED: OXYC1TAB23 PO ×2 (11:20→11:27)
== END 2023-05-29 11:57 | disposition home or self-care (01) ==
LOC: M ED 09:25
DX: S46.001A Unspecified injury of muscle(s) and tendon(s) of the rotator cuff of right shoulder, initial encounter (principal); W19.XXXA Unspecified fall, initial encounter; Y92.009 Unspecified place in unspecified non-institutional (private) residence as the place of occurrence of the external cause; Y93.9 Activity, unspecified; Y99.9 Unspecified external cause status; F17.200 Nicotine dependence, unspecified, uncomplicated; Z79.899 Other long term (current) drug therapy; Z91.040 Latex allergy status

== ENCOUNTER 2023-08-29 20:54 | Inpatient (IN) | payer MEDICARE, OTHER ==
[~2023-08-29] VITALS: Ht 162.6 cm; Wt 63.2 kg
[~2023-08-29 20:54] MED LIST changes: -HYDR-3910 PO; +HYDR25TA87 PO; +OXYC1TAB23 PO
[2023-08-29 21:31] LABS: VENOUS BASE EXCESS 2.4 (-2.0-2.0); VENOUS HCO3 32.1 MMOL/L (23.0-27.0); VENOUS O2 SATURATION 97.7 % (60.0-80.0); VENOUS PARTIAL PRESSURE CO2 72.7 mmHg (38.0-50.0); VENOUS PARTIAL PRESSURE O2 108.6 mmHg (30.0-50.0); VENOUS PH 7.263 UNITS (7.330-7.430); VENOUS STANDARD HCO3 26.6 MMOL/L; VENOUS TOTAL CO2 34.3 MMOL/L (24.0-28.0)
[2023-08-29 21:44] LABS: BASO # 0.1 10^3/uL (0.0-0.2); BASO % 0.5 % (0.0-1.0); EOS # 0.1 10^3/uL (0.0-0.5); HEMOGLOBIN 14.8 g/dl (12.0-15.5); LYMPH % 10.7 % (24.0-44.0); MEAN CORPUSCULAR HEMOGLOBIN 28.8 pg (27.0-33.0); MEAN CORPUSCULAR HGB CONC 30.2 g/dl (32.0-36.5); MEAN CORPUSCULAR VOLUME 95.5 fl (80.0-96.0); MONO # 1.2 10^3/uL (0.0-0.8); MONO % 12.2 % (2.0-8.0); NEUTROPHILS # 7.2 10^3/uL (1.5-8.5); NEUTROPHILS % 74.7 % (36.0-66.0); PLATELET COUNT, AUTOMATED 291 10^3/uL (150-450); RED BLOOD COUNT 5.13 10^6/uL (4.00-5.40); WHITE BLOOD COUNT 9.7 10^3/uL (4.0-10.0)
[2023-08-29] MEDS: IPRATROPIUM 0.5MG/ALBUTEROL 2.5MG INH SOL UD 3ML (DUONEB) NEB SCH (22:08)
[2023-08-29] MEDS: PIPERACILLIN/TAZOBACTAM SOD 4.5 GM in D5W MINI-BAG PLUS 50 ML IV ONE (22:10)
[2023-08-29] MEDS: HYDROCORTISONE 100MG/2ML VIAL IV ONE (22:10)
[2023-08-29 23:44] LABS: ALBUMIN 3.2 G/DL (3.2-5.2); ALKALINE PHOSPHATASE 107 U/L (46-116); ALT/SGPT 10 U/L (7.0-40); AST/SGOT 14 U/L (<34); BILIRUBIN,DIRECT < 0.1 MG/DL (<0.4); BILIRUBIN,TOTAL 0.2 MG/DL (0.3-1.2); BLOOD UREA NITROGEN 15 MG/DL (9-23); CALCIUM LEVEL 8.9 MG/DL (8.3-10.6); CARBON DIOXIDE LEVEL 39 MMOL/L (20-31); CHLORIDE LEVEL 99 MMOL/L (98-107); CK-MB VALUE MASS 1.5 NG/ML (<3.6); CREATININE FOR GFR 0.59 MG/DL (0.55-1.30); GLOMERULAR FILTRATION RATE > 60.0 (>45); GLUCOSE, FASTING 118 MG/DL (74-106); POTASSIUM SERUM 4.3 MMOL/L (3.5-5.1); SODIUM LEVEL 140 MMOL/L (136-145); TOTAL PROTEIN 6.1 G/DL (5.7-8.2)
[2023-08-29 23:45] LABS: THYROXINE (T4) 9.6 UG/DL (4.5-10.9)
[2023-08-29 23:46] LABS: THYROID STIMULATING HORMONE 0.754 uIU/ML (0.55-4.78)
[2023-08-29 23:55] LABS: PROCALCITONIN 0.08 ng/ml
[2023-08-29 23:56] LABS: ABG BASE EXCESS 3.8 (-2.0-2.0); ABG HCO3 34.5 MMOL/L (22.0-26.0); ABG O2 SATURATION 95.4 % (95.0-99.0); ABG PARTIAL PRESSURE O2 87.3 mmHg (75.0-100.0); ABG STANDARD HCO3 27.8 MMOL/L. (22.0-26.0)
[2023-08-29 23:58] LABS: ABG PARTIAL PRESSURE CO2 83.6 mmHg (35.0-45.0); ABG pH (ARTERIAL) 7.233 UNITS (7.350-7.450)
[2023-08-30] VITALS (14 sets, daily range): BP systolic 111–190; BP diastolic 61–77; TEMP 98.1–99.2; O2SAT 85–99
[2023-08-30 00:01] LABS: CPK CREATINE PHOSPHOKINASE 45 U/L (34-145); MB/CK RELATIVE INDEX 3.33 (< OR =4)
[2023-08-30] MEDS: IPRATROPIUM 0.5MG/ALBUTEROL 2.5MG INH SOL UD 3ML (DUONEB) NEB SCH ×2 (00:45→02:18)
[2023-08-30] MEDS ORDERED: ALBU8.5H INH (01:35)
[2023-08-30] MEDS ORDERED: ADVA115A INH (01:35)
[2023-08-30] MEDS ORDERED: TACR0.5C3 PO (01:35)
[2023-08-30] MEDS ORDERED: INCR1INH INH (01:35)
[2023-08-30] MEDS ORDERED: HOME MED LIST COMPLETE! XX SCH (01:40)
[2023-08-30] MEDS ORDERED: ALBUTEROL SULFATE 2.5MG/0.5ML INH NEB SOLN NEB PRN (01:45)
[2023-08-30 02:09] LABS: ABG BASE EXCESS 4.7 (-2.0-2.0); ABG O2 SATURATION 97.7 % (95.0-99.0); ABG PARTIAL PRESSURE O2 106.1 mmHg (75.0-100.0); ABG STANDARD HCO3 28.7 MMOL/L. (22.0-26.0); ABG TOTAL CO2 36.3 MMOL/L (23.0-31.0)
[2023-08-30 02:11] LABS: ABG PARTIAL PRESSURE CO2 72.4 mmHg (35.0-45.0)
[2023-08-30] MEDS: NS 1,000 ML IV SCH (02:21)
[2023-08-30 02:28] LABS: ALBUMIN 3.1 G/DL (3.2-5.2); BLOOD UREA NITROGEN 15 MG/DL (9-23); CALCIUM LEVEL 8.6 MG/DL (8.3-10.6); CARBON DIOXIDE LEVEL 38 MMOL/L (20-31); CHLORIDE LEVEL 100 MMOL/L (98-107); CREATININE FOR GFR 0.54 MG/DL (0.55-1.30); GLOMERULAR FILTRATION RATE > 60.0 (>45); GLUCOSE, FASTING 115 MG/DL (74-106); PHOSPHORUS LEVEL 4.1 MG/DL (2.4-5.1); POTASSIUM SERUM 4.3 MMOL/L (3.5-5.1); SODIUM LEVEL 141 MMOL/L (136-145)
[2023-08-30] MEDS: methylPREDNISolone 125MG 2ML VIAL IV SCH (03:48)
[2023-08-30] MEDS: PIPERACILLIN/TAZOBACTAM SOD 4.5 GM in D5W MINI-BAG PLUS 50 ML IV SCH (03:49)
[2023-08-30] MEDS ORDERED: **hydrALAZINE HCL** 25 MG TAB PO ONE (04:00)
[2023-08-30 06:01] LABS: ABG BASE EXCESS 3.2 (-2.0-2.0); ABG O2 SATURATION 96.7 % (95.0-99.0); ABG PARTIAL PRESSURE O2 89.2 mmHg (75.0-100.0); ABG STANDARD HCO3 27.3 MMOL/L. (22.0-26.0); ABG TOTAL CO2 32.9 MMOL/L (23.0-31.0); ABG pH (ARTERIAL) 7.323 UNITS (7.350-7.450)
[2023-08-30 06:03] LABS: ABG PARTIAL PRESSURE CO2 61.1 mmHg (35.0-45.0)
[2023-08-30] MEDS: ADVAIR HFA 115/21MCG INHALER INH SCH (07:33)
[2023-08-30] MEDS ORDERED: [UNRECOGNIZED DRUG - OTHER] INH SCH (08:00)
[2023-08-30] MEDS: **hydrALAZINE HCL** 25 MG TAB PO SCH (08:09)
[2023-08-30] MEDS: TACROLIMUS 1MG CAP PO SCH (08:09)
[2023-08-30] MEDS: CINACALCET 30 MG TAB (SENSIPAR) PO SCH (08:09)
[2023-08-30] MEDS: METOPROLOL SUCC (TopROL XL) 100MG *XL* TAB PO SCH (08:09)
[2023-08-30] MEDS: MAGNESIUM OXIDE 400MG TAB (MAG-OX) PO SCH (08:09)
[2023-08-30] MEDS: HEPARIN SOD (PORCINE) 5000UNITS/ML 1ML VIAL/SYRINGE SC SCH (08:10)
[2023-08-30] MEDS: PANTOPRAZOLE 40MG VIAL IV SCH (08:10)
[2023-08-30] MEDS: NICOTINE 14 MG/24 HR TRANSDERMAL TD SCH (08:23)
[2023-08-30] MEDS ORDERED: MYCOPHENOLATE PO SCH (09:00)
[2023-08-30 11:09] LABS: VENOUS BASE EXCESS 7.1 (-2.0-2.0); VENOUS HCO3 34.3 MMOL/L (23.0-27.0); VENOUS O2 SATURATION 99.4 % (60.0-80.0); VENOUS PARTIAL PRESSURE CO2 59.5 mmHg (38.0-50.0); VENOUS PARTIAL PRESSURE O2 167.8 mmHg (30.0-50.0); VENOUS PH 7.379 UNITS (7.330-7.430); VENOUS TOTAL CO2 36.2 MMOL/L (24.0-28.0)
[2023-08-30] MEDS: AZITHROMYCIN 250MG TABLET PO SCH (12:45)
[2023-08-30] MEDS: predniSONE 20 MG TAB PO SCH (12:45)
[2023-08-30] MEDS: TIOTROPIUM INHALER/CAPSULE (SPIRIVA) INH SCH (13:17)
[2023-08-30] MEDS: cefTRIAXone SOD 2 GM in D5W MINI-BAG PLUS 50 ML IV SCH (14:52)
[2023-08-30] MEDS: TACROLIMUS 0.5MG CAP PO SCH (20:19)
[2023-08-31] VITALS (12 sets, daily range): BP systolic 140–153; BP diastolic 65–70; TEMP 97.9–99; O2SAT 83–96
[2023-08-31 07:00] LABS: HEMATOCRIT 42.3 % (36.0-47.0); MEAN CORPUSCULAR HEMOGLOBIN 29.1 pg (27.0-33.0); MEAN CORPUSCULAR VOLUME 96.8 fl (80.0-96.0); PLATELET COUNT, AUTOMATED 247 10^3/uL (150-450); RED BLOOD COUNT 4.37 10^6/uL (4.00-5.40); WHITE BLOOD COUNT 8.6 10^3/uL (4.0-10.0)
[2023-08-31 07:22] LABS: HEMOGLOBIN 12.7 g/dl (12.0-15.5)
[2023-08-31 07:31] LABS: BLOOD UREA NITROGEN 17 MG/DL (9-23); CALCIUM LEVEL 9.7 MG/DL (8.3-10.6); CARBON DIOXIDE LEVEL 37 MMOL/L (20-31); CHLORIDE LEVEL 102 MMOL/L (98-107); CREATININE FOR GFR 0.69 MG/DL (0.55-1.30); GLOMERULAR FILTRATION RATE > 60.0 (>45); GLUCOSE, FASTING 122 MG/DL (74-106); MAGNESIUM LEVEL 1.7 MG/DL (1.8-2.4); POTASSIUM SERUM 4.8 MMOL/L (3.5-5.1); SODIUM LEVEL 142 MMOL/L (136-145)
[2023-08-31] MEDS: OXYMETAZOLINE 0.05% NASAL SPRAY (AFRIN) SCH (09:00)
[2023-08-31] MEDS: MYCOPHENOLATE MOFETIL 250 MG CAP (J7517) PO SCH (09:00)
[2023-08-31] MEDS: CETIRIZINE (ZyrTEC) 10 MG TAB PO ONE (10:37)
[2023-08-31] MEDS: MONTELUKAST 10 MG TAB PO ONE (10:37)
[2023-09-01 01:13] VITALS: O2SAT 92
[2023-09-01 05:43] VITALS: BP 154/62; TEMP 98.4; O2SAT 92
[2023-09-01 07:30] VITALS: O2SAT 86
[2023-09-01] MEDS: MONTELUKAST 10 MG TAB PO SCH (08:51)
[2023-09-01] MEDS: CETIRIZINE (ZyrTEC) 10 MG TAB PO SCH (08:51)
[2023-09-01 09:00] VITALS: O2SAT 92
[2023-09-01 09:34] LABS: BASO % 0.4 % (0.0-1.0); EOS % 0.4 % (0.0-3.0); HEMOGLOBIN 11.8 g/dl (12.0-15.5); LYMPH # 1.1 10^3/uL (1.5-5.0); LYMPH % 12.9 % (24.0-44.0); MEAN CORPUSCULAR HEMOGLOBIN 28.6 pg (27.0-33.0); MEAN CORPUSCULAR HGB CONC 29.5 g/dl (32.0-36.5); MEAN CORPUSCULAR VOLUME 97.1 fl (80.0-96.0); MONO # 0.6 10^3/uL (0.0-0.8); MONO % 7.7 % (2.0-8.0); NEUTROPHILS # 6.3 10^3/uL (1.5-8.5); NEUTROPHILS % 75.8 % (36.0-66.0); PLATELET COUNT, AUTOMATED 243 10^3/uL (150-450); RED BLOOD COUNT 4.12 10^6/uL (4.00-5.40); WHITE BLOOD COUNT 8.4 10^3/uL (4.0-10.0)
[2023-09-01 10:13] LABS: PROCALCITONIN 0.06 ng/ml
[2023-09-01 10:14] LABS: ALBUMIN 2.5 G/DL (3.2-5.2); ALKALINE PHOSPHATASE 71 U/L (46-116); ALT/SGPT < 9 U/L (7.0-40); AST/SGOT < 8 U/L (<34); BILIRUBIN,TOTAL < 0.2 MG/DL (0.3-1.2); BLOOD UREA NITROGEN 16 MG/DL (9-23); CALCIUM LEVEL 8.9 MG/DL (8.3-10.6); CARBON DIOXIDE LEVEL 37 MMOL/L (20-31); CHLORIDE LEVEL 104 MMOL/L (98-107); CREATININE FOR GFR 0.85 MG/DL (0.55-1.30); GLOMERULAR FILTRATION RATE > 60.0 (>45); GLUCOSE, FASTING 121 MG/DL (74-106); MAGNESIUM LEVEL 1.5 MG/DL (1.8-2.4); POTASSIUM SERUM 3.9 MMOL/L (3.5-5.1); SODIUM LEVEL 145 MMOL/L (136-145); TOTAL PROTEIN 5.1 G/DL (5.7-8.2)
[2023-09-01 16:49] VITALS: BP 151/63; TEMP 98.6; O2SAT 91
[2023-09-01 20:40] VITALS: BP 168/65; TEMP 97.6; O2SAT 92
[2023-09-02 04:04] VITALS: O2SAT 92
[2023-09-02 06:00] VITALS: BP 163/68; TEMP 97.9; O2SAT 94
[2023-09-02 07:57] VITALS: O2SAT 91
[2023-09-02 08:09] LABS: HEMATOCRIT 42.8 % (36.0-47.0); MEAN CORPUSCULAR HEMOGLOBIN 29.1 pg (27.0-33.0); MEAN CORPUSCULAR HGB CONC 30.4 g/dl (32.0-36.5); MEAN CORPUSCULAR VOLUME 95.7 fl (80.0-96.0); PLATELET COUNT, AUTOMATED 246 10^3/uL (150-450); RED BLOOD COUNT 4.47 10^6/uL (4.00-5.40); WHITE BLOOD COUNT 9.9 10^3/uL (4.0-10.0)
[2023-09-02 08:26] LABS: BLOOD UREA NITROGEN 15 MG/DL (9-23); CALCIUM LEVEL 9.1 MG/DL (8.3-10.6); CARBON DIOXIDE LEVEL 36 MMOL/L (20-31); CHLORIDE LEVEL 101 MMOL/L (98-107); CREATININE FOR GFR 0.63 MG/DL (0.55-1.30); GLOMERULAR FILTRATION RATE > 60.0 (>45); GLUCOSE, FASTING 125 MG/DL (74-106); SODIUM LEVEL 141 MMOL/L (136-145)
[2023-09-02 08:27] LABS: ABG BASE EXCESS 6.7 (-2.0-2.0); ABG HCO3 32.9 MMOL/L (22.0-26.0); ABG O2 SATURATION 95.9 % (95.0-99.0); ABG PARTIAL PRESSURE CO2 53.9 mmHg (35.0-45.0); ABG STANDARD HCO3 30.5 MMOL/L. (22.0-26.0); ABG TOTAL CO2 34.6 MMOL/L (23.0-31.0); ABG pH (ARTERIAL) 7.404 UNITS (7.350-7.450)
[2023-09-02 08:56] VITALS: BP 152/63
[2023-09-02] MEDS ORDERED: DOXY100C3 PO (13:59)
[2023-09-02] MEDS ORDERED: LEVO1TAB40 PO (13:59)
[2023-09-02] MEDS ORDERED: PRED10TA2 PO (13:59)
[2023-09-02] MEDS ORDERED: PRED20TA PO (13:59)
[2023-09-02] MEDS ORDERED: VENTAER INH (13:59)
[2023-09-02] MEDS ORDERED: BACI1CAP PO (13:59)
[2023-09-02 14:00] VITALS: BP 153/64; TEMP 97.2; O2SAT 92
[2023-09-02] MEDS: LevoFLOXacin 750 MG TABLET PO SCH (14:03)
[2023-09-02 14:09] LABS: BODY FLUID CULTURE Not indicated. (.); LEGIONELLA ANTIGEN URINE Negative (Negative); ORGANISM ID Not indicated. (.); SPECIMEN SOURCE Urine (.); URINE STREP PNEUMONIAE ANTIGEN Negative (Negative)
[2023-10-01] MEDS ORDERED: MONTELUKAST 10 MG TAB PO SCH (09:00)
== END 2023-09-02 16:21 | disposition home health service (06) | DRG 193 ==
LOC: M ED 20:54 → M ED INP 08-30 01:44 → ENRESERV 08-30 02:57 → M ICU 08-30 03:28 → M MSPAV 08-30 17:02
PROVIDERS: ADMIT Internal Medicine; ATTEND General Practice
PROC: B246ZZZ Ultrasonography of Right and Left Heart (ICD-10-PCS; principal; 2023-08-31)
DX: J18.9 Pneumonia, unspecified organism (principal); J96.21 Acute and chronic respiratory failure with hypoxia; J96.22 Acute and chronic respiratory failure with hypercapnia; J44.0 Chronic obstructive pulmonary disease with (acute) lower respiratory infection; Z94.0 Kidney transplant status; J44.1 Chronic obstructive pulmonary disease with (acute) exacerbation; E87.29 Other acidosis; D84.821 Immunodeficiency due to drugs; D84.81 Immunodeficiency due to conditions classified elsewhere; I50.32 Chronic diastolic (congestive) heart failure; I11.0 Hypertensive heart disease with heart failure; F41.9 Anxiety disorder, unspecified; F32.A Depression, unspecified; Z90.49 Acquired absence of other specified parts of digestive tract; F17.210 Nicotine dependence, cigarettes, uncomplicated; Z79.52 Long term (current) use of systemic steroids; Z79.899 Other long term (current) drug therapy; Z91.040 Latex allergy status

== ENCOUNTER → 2023-09-30 | Outpatient (REF) | payer MEDICARE ==
[~2023-09-30] MED LIST changes: +ALBU8.5H INH; +BACI1CAP PO; +DOXY100C3 PO; +LEVO1TAB40 PO; +PRED10TA2 PO; +TACR0.5C3 PO; +VENTAER INH
== END ==
LOC: M LAB REF 17:26
PROVIDERS: ATTEND Internal Medicine Nephrology
DX: Z94.0 Kidney transplant status (principal)

== ENCOUNTER 2024-02-22 14:46 | Observation (INO) | payer MEDICARE ==
[~2024-02-22] VITALS: Ht 162.6 cm; Wt 62.4 kg
[2024-02-22 18:40] LABS: BASO % 0.3 % (0.0-1.0); EOS % 0.1 % (0.0-3.0); HEMATOCRIT 47.4 % (36.0-47.0); LYMPH % 7.1 % (24.0-44.0); MEAN CORPUSCULAR HEMOGLOBIN 29.4 pg (27.0-33.0); MEAN CORPUSCULAR HGB CONC 31.6 g/dl (32.0-36.5); MEAN CORPUSCULAR VOLUME 92.8 fl (80.0-96.0); MONO % 7.3 % (2.0-8.0); NEUTROPHILS % 84.7 % (36.0-66.0); PLATELET COUNT, AUTOMATED 189 10^3/uL (150-450); RED BLOOD COUNT 5.11 10^6/uL (4.00-5.40); WHITE BLOOD COUNT 14.2 10^3/uL (4.0-10.0)
[2024-02-22 19:12] LABS: LIPASE 21 U/L (12-53)
[2024-02-22 19:14] LABS: ALBUMIN 3.7 G/DL (3.2-5.2); ALKALINE PHOSPHATASE 97 U/L (46-116); ALT/SGPT 14 U/L (7.0-40); AST/SGOT 16 U/L (<34); BILIRUBIN,DIRECT 0.3 MG/DL (<0.4); BILIRUBIN,TOTAL 0.8 MG/DL (0.3-1.2); BLOOD UREA NITROGEN 12 MG/DL (9-23); CALCIUM LEVEL 9.8 MG/DL (8.3-10.6); CARBON DIOXIDE LEVEL 28 MMOL/L (20-31); CHLORIDE LEVEL 103 MMOL/L (98-107); CREATININE FOR GFR 0.65 MG/DL (0.55-1.30); GLOMERULAR FILTRATION RATE > 60.0 (>45); GLUCOSE, FASTING 119 MG/DL (74-106); POTASSIUM SERUM 5.3 MMOL/L (3.5-5.1); SODIUM LEVEL 137 MMOL/L (136-145); TOTAL PROTEIN 6.8 G/DL (5.7-8.2)
[2024-02-22 19:23] LABS: FREE T4 1.51 NG/DL (0.89-1.76)
[2024-02-22] MEDS: DEXTROSE 50% 50ML SYRINGE IV STA (19:52)
[2024-02-22] MEDS: HumuLIN R (REGULAR) INSULIN (NovoLIN R) **100U/ML** PER UNIT IV ONE (19:53)
[2024-02-22] MEDS: CALCIUM GLUCONATE 1,000 MG in D5W MINI-BAG PLUS 100 ML IV ONE (19:53)
[2024-02-22 19:57] LABS: CK-MB VALUE MASS < 1.0 NG/ML (<3.6)
[2024-02-22 20:16] LABS: CPK CREATINE PHOSPHOKINASE 49 U/L (34-145); MB/CK RELATIVE INDEX 2.04 (< OR =4)
[2024-02-22 20:35] LABS: CK-MB VALUE MASS < 1.0 NG/ML (<3.6)
[2024-02-22 20:44] LABS: CPK CREATINE PHOSPHOKINASE 44 U/L (34-145); MB/CK RELATIVE INDEX 2.27 (< OR =4)
[2024-02-22 22:26] LABS: ABG BASE EXCESS 1.1 (-2.0-2.0); ABG HCO3 26.7 MMOL/L (22.0-26.0); ABG O2 SATURATION 96.9 % (95.0-99.0); ABG PARTIAL PRESSURE CO2 45.9 mmHg (35.0-45.0); ABG PARTIAL PRESSURE O2 89.2 mmHg (75.0-100.0); ABG STANDARD HCO3 25.4 MMOL/L. (22.0-26.0); ABG TOTAL CO2 28.1 MMOL/L (23.0-31.0); ABG pH (ARTERIAL) 7.382 UNITS (7.350-7.450)
[2024-02-23] VITALS (19 sets, daily range): BP systolic 145–194; BP diastolic 60–83; TEMP 97.6–99.4; O2SAT 87–97
[2024-02-23] MEDS: PATIROMER SORBITEX CALCIUM 8.4 GM POWDER PACKET (VELTASSA) PO ONE (00:17)
[2024-02-23] MEDS ORDERED: ALBU2.5V10 INH (00:18)
[2024-02-23] MEDS: cefTRIAXone SOD 2 GM in DEXTROSE 5% (D5W) ADV/MINI-BAG 50 ML IV ONE (00:18)
[2024-02-23] MEDS ORDERED: HOME MED LIST COMPLETE! XX SCH (00:20)
[2024-02-23] MEDS: AZITHROMYCIN 250MG TABLET PO ONE (00:24)
[2024-02-23] MEDS ORDERED: NICOTINE POLACRILEX 2 MG GUM PO PRN (00:45)
[2024-02-23] MEDS ORDERED: NICOTINE 14 MG/24 HR TRANSDERMAL TD PRN (00:45)
[2024-02-23] MEDS ORDERED: ALBUTEROL SULFATE 2.5MG/0.5ML INH NEB SOLN INH PRN (00:45)
[2024-02-23] MEDS ORDERED: ALBUTEROL 90 MCG/ACT 8GM HFA INHALER INH PRN (00:45)
[2024-02-23] MEDS ORDERED: hydrALAZINE 20MG/ML 1ML VIAL IV PRN (00:45)
[2024-02-23] MEDS: **hydrALAZINE HCL** 25 MG TAB PO SCH (01:43)
[2024-02-23] MEDS: METOPROLOL SUCC (TopROL XL) 100MG *XL* TAB PO SCH (01:43)
[2024-02-23] MEDS: TACROLIMUS 1MG CAP PO SCH (02:19)
[2024-02-23] MEDS: TACROLIMUS 0.5MG CAP PO SCH (02:20)
[2024-02-23] MEDS: hydrALAZINE 20MG/ML 1ML VIAL IV STA (04:53)
[2024-02-23] MEDS: ACETAMINOPHEN 500 MG TAB PO PRN (04:57)
[2024-02-23 07:47] LABS: ALBUMIN 3.2 G/DL (3.2-5.2); BLOOD UREA NITROGEN 12 MG/DL (9-23); CALCIUM LEVEL 9.3 MG/DL (8.3-10.6); CARBON DIOXIDE LEVEL 30 MMOL/L (20-31); CHLORIDE LEVEL 103 MMOL/L (98-107); CREATININE FOR GFR 0.71 MG/DL (0.55-1.30); GLOMERULAR FILTRATION RATE > 60.0 (>45); GLUCOSE, FASTING 123 MG/DL (74-106); MAGNESIUM LEVEL 1.5 MG/DL (1.8-2.4); PHOSPHORUS LEVEL 3.8 MG/DL (2.4-5.1); POTASSIUM SERUM 4.6 MMOL/L (3.5-5.1); SODIUM LEVEL 136 MMOL/L (136-145)
[2024-02-23 07:54] LABS: PROCALCITONIN 0.11 ng/ml
[2024-02-23 08:06] LABS: ERYTHROCYTE SEDIMENTATION RATE 38 mm/hr (0-30)
[2024-02-23 08:12] LABS: BASO % 0.2 % (0.0-1.0); EOS % 0.1 % (0.0-3.0); HEMATOCRIT 42.6 % (36.0-47.0); HEMOGLOBIN 13.6 g/dl (12.0-15.5); LYMPH # 0.9 10^3/uL (1.5-5.0); LYMPH % 6.7 % (24.0-44.0); MEAN CORPUSCULAR HEMOGLOBIN 29.1 pg (27.0-33.0); MEAN CORPUSCULAR HGB CONC 31.9 g/dl (32.0-36.5); MEAN CORPUSCULAR VOLUME 91.2 fl (80.0-96.0); MONO # 1.2 10^3/uL (0.0-0.8); MONO % 9.6 % (2.0-8.0); NEUTROPHILS # 10.6 10^3/uL (1.5-8.5); NEUTROPHILS % 82.9 % (36.0-66.0); PLATELET COUNT, AUTOMATED 173 10^3/uL (150-450); RED BLOOD COUNT 4.67 10^6/uL (4.00-5.40); WHITE BLOOD COUNT 12.8 10^3/uL (4.0-10.0)
[2024-02-23] MEDS: ADVAIR HFA 115/21MCG INHALER INH SCH (08:48)
[2024-02-23] MEDS: TIOTROPIUM INHALER/CAPSULE (SPIRIVA) INH SCH (08:51)
[2024-02-23] MEDS ORDERED: **hydrALAZINE HCL** 25 MG TAB PO SCH (09:00)
[2024-02-23] MEDS ORDERED: TACROLIMUS 1MG CAP PO SCH (09:00)
[2024-02-23] MEDS ORDERED: MYCOPHENOLATE 180 MG PO SCH (09:00)
[2024-02-23] MEDS ORDERED: ISOVUE-370 76% 100ML VIAL As Ordered ONE (09:24)
[2024-02-23] MEDS: CINACALCET 30 MG TAB (SENSIPAR) PO SCH (09:42)
[2024-02-23] MEDS: predniSONE 5 MG TAB PO SCH (09:43)
[2024-02-23] MEDS: AZITHROMYCIN 250MG TABLET PO SCH (09:43)
[2024-02-23] MEDS: cefTRIAXone SOD 1 GM in DEXTROSE 5% (D5W) ADV/MINI-BAG 50 ML IV SCH (09:43)
[2024-02-23] MEDS ORDERED: CEFD1CAP9 PO (11:42)
[2024-02-23] MEDS ORDERED: AZIT500T5 PO (11:42)
[2024-02-23] MEDS ORDERED: HYDR25TA87 PO (11:43)
[2024-02-23] MEDS ORDERED: TACROLIMUS 0.5MG CAP PO SCH (21:00)
[2024-02-23] MEDS ORDERED: METOPROLOL SUCC (TopROL XL) 100MG *XL* TAB PO SCH ×2 (21:00)
== END 2024-02-23 15:44 | disposition home or self-care (01) ==
LOC: M ED 14:46 → M ED INP 23:50 → M PCU 02-23 01:06
PROVIDERS: ADMIT Student in an Organized Health Care Education/Training Program; ATTEND Student in an Organized Health Care Education/Training Program
DX: R91.8 Other nonspecific abnormal finding of lung field (principal); R53.1 Weakness; I16.0 Hypertensive urgency; E87.5 Hyperkalemia; N17.9 Acute kidney failure, unspecified; N18.2 Chronic kidney disease, stage 2 (mild); R06.82 Tachypnea, not elsewhere classified; J44.9 Chronic obstructive pulmonary disease, unspecified; E87.1 Hypo-osmolality and hyponatremia; E21.0 Primary hyperparathyroidism; R05.9 Cough, unspecified; R51.9 Headache, unspecified; Z99.81 Dependence on supplemental oxygen; Z87.19 Personal history of other diseases of the digestive system; Z94.0 Kidney transplant status; Z90.49 Acquired absence of other specified parts of digestive tract; Z98.891 History of uterine scar from previous surgery; I77.0 Arteriovenous fistula, acquired; Z84.1 Family history of disorders of kidney and ureter; Z80.1 Family history of malignant neoplasm of trachea, bronchus and lung; Z79.52 Long term (current) use of systemic steroids; F17.200 Nicotine dependence, unspecified, uncomplicated; Z79.899 Other long term (current) drug therapy; Z91.040 Latex allergy status
CPT/HCPCS: 36415; 36600; 70450; 71046; 71275; 80048; 80069; 80076; 81001; 82550; 82553; 82803; 83605; 83690; 83735; 83880; 84145; 84439; 84443; 84484; 85025; 85027; 85652; 86140; 87040; 87486; 87581; 87633; 87798; 93005; 93041; 94640; 94760; 96365; 96366; 96375; 97161; 99285; G0378; J0360; J0612; J0696; J1815; J7507; J7512; Q9967

== ENCOUNTER → 2024-03-17 | Outpatient (REF) | payer MEDICARE ==
[~2024-03-17] MED LIST changes: +ALBU2.5V10 INH; +AZIT500T5 PO; +CEFD1CAP9 PO
== END ==
LOC: M LAB REF 17:03
PROVIDERS: ATTEND Internal Medicine Nephrology
DX: Z94.0 Kidney transplant status (principal)

== ENCOUNTER 2024-07-12 09:32 | Inpatient (IN) | payer MEDICARE ==
[~2024-07-12] VITALS: Ht 162.6 cm; Wt 57.5 kg
[2024-07-12] MEDS: IPRATROPIUM 0.5MG/ALBUTEROL 2.5MG INH SOL UD 3ML (DUONEB) NEB PRN (10:39)
[2024-07-12 10:41] LABS: VENOUS HCO3 36.3 MMOL/L (23.0-27.0); VENOUS O2 SATURATION 70.9 % (60.0-80.0); VENOUS PARTIAL PRESSURE CO2 69.4 mmHg (38.0-50.0); VENOUS PH 7.336 UNITS (7.330-7.430); VENOUS STANDARD HCO3 31.1 MMOL/L; VENOUS TOTAL CO2 38.4 MMOL/L (24.0-28.0)
[2024-07-12] MEDS ORDERED: ADVA230A INH (10:41)
[2024-07-12] MEDS ORDERED: HYDR50TA46 PO (10:41)
[2024-07-12] MEDS: methylPREDNISolone 125MG 2ML VIAL IV ONE (10:44)
[2024-07-12] MEDS ORDERED: HOME MED LIST COMPLETE! XX SCH (10:45)
[2024-07-12 10:50] LABS: BASO % 0.3 % (0.0-1.0); EOS # 0.1 10^3/uL (0.0-0.5); EOS % 1.7 % (0.0-3.0); HEMATOCRIT 41.2 % (36.0-47.0); LYMPH # 0.8 10^3/uL (1.5-5.0); MEAN CORPUSCULAR HEMOGLOBIN 28.1 pg (27.0-33.0); MEAN CORPUSCULAR HGB CONC 29.1 g/dl (32.0-36.5); MEAN CORPUSCULAR VOLUME 96.5 fl (80.0-96.0); MONO # 0.6 10^3/uL (0.0-0.8); MONO % 10.5 % (2.0-8.0); NEUTROPHILS # 4.4 10^3/uL (1.5-8.5); NEUTROPHILS % 74.3 % (36.0-66.0); PLATELET COUNT, AUTOMATED 162 10^3/uL (150-450); RED BLOOD COUNT 4.27 10^6/uL (4.00-5.40); WHITE BLOOD COUNT 5.9 10^3/uL (4.0-10.0)
[2024-07-12 11:20] LABS: ALBUMIN 3.9 G/DL (3.2-5.2); ALKALINE PHOSPHATASE 70 U/L (35-104); ALT/SGPT 17 U/L (7.0-40); AST/SGOT 27 U/L (<34); BILIRUBIN,DIRECT 0.3 MG/DL (<0.4); BILIRUBIN,TOTAL 0.9 MG/DL (0.3-1.2); BLOOD UREA NITROGEN 13 MG/DL (9-23); CALCIUM LEVEL 9.9 MG/DL (8.3-10.6); CARBON DIOXIDE LEVEL 38 MMOL/L (20-31); CHLORIDE LEVEL 96 MMOL/L (98-107); CREATININE FOR GFR 0.52 MG/DL (0.55-1.30); GLOMERULAR FILTRATION RATE > 60.0 (>45); GLUCOSE, FASTING 107 MG/DL (74-106); POTASSIUM SERUM 4.7 MMOL/L (3.5-5.1); SODIUM LEVEL 138 MMOL/L (136-145); TOTAL PROTEIN 6.7 G/DL (5.7-8.2)
[2024-07-12 11:41] LABS: OSMOLALITY SERUM 295 MOSM/KG (280-301)
[2024-07-12] MEDS ORDERED: ISOVUE-370 76% 100ML VIAL As Ordered ONE (12:15)
[2024-07-12] MEDS ORDERED: ACETAMINOPHEN 325 MG TAB PO PRN (14:00)
[2024-07-12] MEDS ORDERED: IPRATROPIUM 0.5MG/ALBUTEROL 2.5MG INH SOL UD 3ML (DUONEB) NEB SCH (14:00)
[2024-07-12 14:23] LABS: KETONE, URINE AUTO RFX TRACE mg/dL (NEGATIVE); LEUKOCYTE ESTERASE UR AUTO RFX NEGATIVE (NEGATIVE); MUCUS, URINE RFX SMALL (NEGATIVE); NITRITE, URINE AUTO RFX NEGATIVE (NEGATIVE); RBC, URINE AUTO RFX 0 /HPF (0-3); SQUAM EPITHELIAL CELL UR AURFX 0 /HPF (0-6); WBC, URINE AUTO RFX 0 /HPF (0-3)
[2024-07-12 15:33] LABS: C REACTIVE PROTEIN QUANTITATIV 0.62 MG/DL (<1.0)
[2024-07-12 15:38] LABS: ABG BASE EXCESS 7.2 (-2.0-2.0); ABG HCO3 33.6 MMOL/L (22.0-26.0); ABG O2 SATURATION 88.8 % (95.0-99.0); ABG PARTIAL PRESSURE CO2 55.5 mmHg (35.0-45.0); ABG PARTIAL PRESSURE O2 53.8 mmHg (75.0-100.0); ABG STANDARD HCO3 30.8 MMOL/L. (22.0-26.0); ABG TOTAL CO2 35.3 MMOL/L (23.0-31.0)
[2024-07-12 15:40] LABS: PROCALCITONIN 0.05 ng/ml
[2024-07-12] MEDS: AZITHROMYCIN 250MG TABLET PO SCH (15:53)
[2024-07-12] MEDS: METOPROLOL SUCC (TopROL XL) 100MG *XL* TAB PO SCH (15:54)
[2024-07-12] MEDS: **hydrALAZINE** 50 MG TAB PO SCH (15:54)
[2024-07-12] MEDS: NS (Normal Saline) 0.9% 1,000 ML IV ONE (15:55)
[2024-07-12] MEDS: CINACALCET 30 MG TAB (SENSIPAR) PO SCH (15:55)
[2024-07-12] MEDS: MAGNESIUM OXIDE 400MG TAB (MAG-OX) PO SCH (15:55)
[2024-07-12 16:08] LABS: AMPHETAMINES LEVEL URINE NEGATIVE (NEGATIVE); BARBITURATES URINE NEGATIVE (NEGATIVE)
[2024-07-12 16:09] LABS: BENZODIAZEPINES URINE NEGATIVE (NEGATIVE); COCAINE METABOLITE URINE NEGATIVE (NEGATIVE); METHADONE URINE NEGATIVE (NEGATIVE); OPIATES URINE NEGATIVE (NEGATIVE); PHENCYCLIDINE URINE NEGATIVE (NEGATIVE)
[2024-07-12 16:10] LABS: CANNABINOIDS URINE POSITIVE (NEGATIVE)
[2024-07-12 18:10] VITALS: BP 155/82; TEMP 97.5; O2SAT 92
[2024-07-12] MEDS: BUDESONIDE 0.5 MG/2 ML INHALATION SUSPENSION NEB SCH (19:37)
[2024-07-12] MEDS: FORMOTEROL FUMARATE 20 MCG/2 ML INHALATION SOLUTION (PERFOROMIST) INH SCH (19:37)
[2024-07-12] MEDS: IPRATROPIUM 0.5MG/ALBUTEROL 2.5MG INH SOL UD 3ML (DUONEB) NEB SCH (19:37)
[2024-07-12 20:09] VITALS: BP 155/60; TEMP 97.5; O2SAT 92
[2024-07-12 20:22] VITALS: BP 189/74; TEMP 97.7; O2SAT 91
[2024-07-12] MEDS: TACROLIMUS 0.5MG CAP PO SCH (20:44)
[2024-07-12] MEDS: TACROLIMUS 1MG CAP PO SCH (20:44)
[2024-07-12] MEDS ORDERED: **hydrALAZINE** 50 MG TAB PO SCH (21:00)
[2024-07-12] MEDS: RAMELTEON 8 MG TAB (ROZEREM) PO ONE (22:07)
[2024-07-12] MEDS: HEPARIN SOD (PORCINE) 5000UNITS/ML 1ML VIAL/SYRINGE SQ SCH (22:07)
[2024-07-12] MEDS: methylPREDNISolone 40MG 1ML VIAL IV SCH (22:07)
[2024-07-13 01:13] VITALS: BP 159/66
[2024-07-13 05:39] VITALS: BP 147/64; TEMP 97.7; O2SAT 94
[2024-07-13 05:54] LABS: HEMATOCRIT 38.3 % (36.0-47.0); HEMOGLOBIN 11.6 g/dl (12.0-15.5); MEAN CORPUSCULAR HEMOGLOBIN 28.6 pg (27.0-33.0); MEAN CORPUSCULAR HGB CONC 30.3 g/dl (32.0-36.5); MEAN CORPUSCULAR VOLUME 94.6 fl (80.0-96.0); PLATELET COUNT, AUTOMATED 148 10^3/uL (150-450); RED BLOOD COUNT 4.05 10^6/uL (4.00-5.40); WHITE BLOOD COUNT 4.5 10^3/uL (4.0-10.0)
[2024-07-13 06:20] LABS: BLOOD UREA NITROGEN 16 MG/DL (9-23); CARBON DIOXIDE LEVEL 37 MMOL/L (20-31); CHLORIDE LEVEL 101 MMOL/L (98-107); CREATININE FOR GFR 0.65 MG/DL (0.55-1.30); GLOMERULAR FILTRATION RATE > 60.0 (>45); GLUCOSE, FASTING 159 MG/DL (74-106); POTASSIUM SERUM 4.8 MMOL/L (3.5-5.1); SODIUM LEVEL 142 MMOL/L (136-145)
[2024-07-13] MEDS: TIOTROPIUM INHALER/CAPSULE (SPIRIVA) INH SCH (08:04)
[2024-07-13 12:00] VITALS: BP 124/71; TEMP 98.2; O2SAT 90
[2024-07-13] MEDS: MYCOPHENOLATE 180 MG PO SCH (12:58)
[2024-07-13] MEDS: SINEMET 25-100 MG TAB PO SCH (20:00)
[2024-07-13 21:00] VITALS: BP 155/69; TEMP 98.2; O2SAT 90
[2024-07-14 04:30] VITALS: BP 143/57; TEMP 98.1; O2SAT 91
[2024-07-14 06:03] LABS: HEMATOCRIT 34.7 % (36.0-47.0); HEMOGLOBIN 10.5 g/dl (12.0-15.5); LYMPH # 0.4 10^3/uL (1.5-5.0); LYMPH % 5.6 % (24.0-44.0); MEAN CORPUSCULAR HEMOGLOBIN 28.5 pg (27.0-33.0); MEAN CORPUSCULAR HGB CONC 30.3 g/dl (32.0-36.5); MONO # 0.1 10^3/uL (0.0-0.8); NEUTROPHILS # 6.1 10^3/uL (1.5-8.5); NEUTROPHILS % 92.1 % (36.0-66.0); PLATELET COUNT, AUTOMATED 165 10^3/uL (150-450); RED BLOOD COUNT 3.69 10^6/uL (4.00-5.40); WHITE BLOOD COUNT 6.6 10^3/uL (4.0-10.0)
[2024-07-14 06:32] LABS: BLOOD UREA NITROGEN 20 MG/DL (9-23); CALCIUM LEVEL 8.8 MG/DL (8.3-10.6); CARBON DIOXIDE LEVEL 32 MMOL/L (20-31); CHLORIDE LEVEL 101 MMOL/L (98-107); CREATININE FOR GFR 0.59 MG/DL (0.55-1.30); GLOMERULAR FILTRATION RATE > 60.0 (>45); GLUCOSE, FASTING 150 MG/DL (74-106); POTASSIUM SERUM 4.6 MMOL/L (3.5-5.1); SODIUM LEVEL 141 MMOL/L (136-145)
[2024-07-14 08:48] VITALS: BP 159/56
[2024-07-14 12:00] VITALS: BP 160/59; TEMP 97.9; O2SAT 92
[2024-07-14] MEDS: CYANOCOBALAMIN 1,000MCG/ML 1ML VIAL IM ONE (12:10)
[2024-07-14] MEDS: predniSONE 20 MG TAB PO SCH (12:10)
[2024-07-14] MEDS ORDERED: B-12100021 PO (12:27)
[2024-07-14] MEDS ORDERED: CARB25TA9 PO (12:27)
[2024-07-14] MEDS ORDERED: HYDR50TA46 PO (12:27)
[2024-07-14] MEDS ORDERED: PRED10TA2 PO (12:27)
[2024-07-15] MEDS ORDERED: CYANOCOBALAMIN 1,000MCG/ML 1ML VIAL IM SCH (09:00)
[2024-07-16 02:27] LABS: T P ELECTROPHORESIS SO 6.1 g/dL (6.1-8.1)
== END 2024-07-14 14:05 | disposition home or self-care (01) | DRG 191 ==
LOC: M ED 11:34 → M ED INP 14:31 → M MSPAV 18:18
PROVIDERS: ADMIT Internal Medicine; ATTEND Internal Medicine
DX: J44.1 Chronic obstructive pulmonary disease with (acute) exacerbation (principal); J96.10 Chronic respiratory failure, unspecified whether with hypoxia or hypercapnia; E87.3 Alkalosis; N25.81 Secondary hyperparathyroidism of renal origin; Z94.0 Kidney transplant status; F05 Delirium due to known physiological condition; E87.4 Mixed disorder of acid-base balance; R25.1 Tremor, unspecified; I10 Essential (primary) hypertension; F17.210 Nicotine dependence, cigarettes, uncomplicated; Z66 Do not resuscitate; Z99.81 Dependence on supplemental oxygen; Z79.52 Long term (current) use of systemic steroids; Z79.899 Other long term (current) drug therapy; Z91.040 Latex allergy status; Z90.49 Acquired absence of other specified parts of digestive tract